=== PATIENT | female | born 1945 | race Caucasian/White ===

== ENCOUNTER → 2016-06-22 | Outpatient (CLI) | payer MEDICARE, OTHER ==
--- NOTE | 2016-06-22 08:26 | US ---
EXAMINATION TYPE: US abdomen complete DATE OF EXAM: 06/22/2016 8:11 AM COMPARISON: 12/27/2015 CLINICAL HISTORY: Chronic Hep B. EXAM MEASUREMENTS: Liver Length: 13.4cm Gallbladder Wall: 0.2cm CBD: 0.2cm Spleen: 8.5 Right Kidney: 10.3 x 4.4 x 4.7cm Left Kidney: 9.4 x 4.7 x 4.8cm ANATOMY: TECHNOLOGIST IMPRESSION: Pancreas: appears wnl Liver: somewhat heterogeneous limiting visualization, no masses seen Gallbladder: wnl Evidence for sonographic Hernandez's sign: No CBD: Within normal limits Spleen: no mass seen Right Kidney: No hydronephrosis or masses seen Left Kidney: No hydronephrosis or masses seen Upper IVC: Within normal limits Abd Aorta: Within normal limits The liver is heterogenous. The intrahepatic portion of the IVC and proximal abdominal aorta are withi n normal limits. There is no evidence of cholelithiasis. Common bile duct is unremarkable. The vis ualized portions of the pancreas are homogenous. The spleen is unremarkable. Kidneys are symmetric and free of hydronephrosis. No renal lesions are seen. IMPRESSION: Hepatic heterogeneity which may reflect chronic hepatocellular disease. Normal Values: Liver Length: < 16cm wnl, 17-18cm upper limits, >18cm enlarged Spleen Length = < 13cm Renal Length = 9 - 12cm GB Wall: < 0.3cm CBD: < 0.6cm or < 1.0cm post cholecystectomy
== END | disposition home or self-care (01) ==
LOC: RADUSWWP 07:36
PROVIDERS: ATTEND Internal Medicine Gastroenterology
DX: B18.1 Chronic viral hepatitis B without delta-agent (principal)
CPT/HCPCS: 76700

== ENCOUNTER → 2016-08-17 | Outpatient (CLI) | payer MEDICARE, OTHER ==
--- NOTE | 2016-08-18 10:29 | MM ---
Reason for exam: screening (asymptomatic). Last mammogram was performed 1 year ago. History: Patient is postmenopausal. Family history of breast cancer in maternal aunt at age 60 and breast cancer in paternal aunt at age 60. Benign excisional biopsy of the right breast, 2006. Took estrogen for 5 years beginning at age 32. Physical Findings: A clinical breast exam by your physician is recommended on an annual basis and results should be correlated with mammographic findings. MG 3D Screening Mammo W/Cad Bilateral CC and MLO view(s) were taken. Prior study comparison: August 16, 2015, bilateral MG screening mammo w CAD. August 13, 2014, bilateral MG screening mammo w CAD. July 17, 2013, bilateral digital screening mammo w/CAD. There are scattered fibroglandular densities. Finding: There are typically benign round calcifications in both breasts. Asymmetric breast tissue in the right breast upper quadrant is stable. There is a chronic nodularity bilaterally. There is no new dominant lesion. There is no discrete abnormality. ASSESSMENT: Benign, BI-RAD 2 RECOMMENDATION: Routine screening mammogram of both breasts in 1 year.
== END ==
LOC: RADMAMWWP 10:48
PROVIDERS: ATTEND Internal Medicine
DX: Z12.31 Encounter for screening mammogram for malignant neoplasm of breast (principal)
CPT/HCPCS: 77063; G0202

== ENCOUNTER → 2016-11-24 | Outpatient (CLI) | payer MEDICARE, OTHER ==
--- NOTE | 2016-11-24 16:56 | US ---
EXAMINATION TYPE: US abdomen complete DATE OF EXAM: 11/24/2016 COMPARISON: US on PACS CLINICAL HISTORY: K74.0 Liver Fibrosis,B18.1 CHR Viral Hepatitis. EXAM MEASUREMENTS: Liver Length: 13.6 cm Gallbladder Wall: 0.1 cm CBD: 0.3 cm Spleen: 8.4 cm Right Kidney: 10.4 x 5.3 x 4.4 cm Left Kidney: 9.9 x 4.6 x 4.5 cm Pancreas: wnl, bottom of tail obscured by bowel gas Liver: heterogeneous texture overall. No masses seen. Gallbladder: wnl Evidence for sonographic Hernandez's sign: no CBD: wnl Spleen: wnl Right Kidney: No hydronephrosis or masses seen, multiple small, shadowing echogenic foci noted withi n kidney Left Kidney: : No hydronephrosis or masses seen, multiple small, shadowing echogenic foci noted wit hin kidney Upper IVC: wnl Abd Aorta: wnl IMPRESSION: 1. Renal lithiasis without obstruction
== END | disposition home or self-care (01) ==
LOC: RADUSWWP 06:57
PROVIDERS: ATTEND Internal Medicine Gastroenterology
DX: N20.0 Calculus of kidney (principal); B18.1 Chronic viral hepatitis B without delta-agent
CPT/HCPCS: 76700

== ENCOUNTER → 2017-07-30 | Outpatient (CLI) | payer MEDICARE, OTHER ==
[2017-07-30 12:01] LABS: HCT 46.8 % (34.0-46.0); HGB 15.6 gm/dL (11.4-16.0); MCH 29.9 pg (25.0-35.0); MCHC 33.4 g/dL (31.0-37.0); MCV 89.6 fL (80.0-100.0); Mean Platelet Volume 7.1; Platelet Count 212 k/uL (150-450); RBC 5.22 m/uL (3.80-5.40); RDW 13.6 % (11.5-15.5); WBC 7.8 k/uL (3.8-10.6)
[2017-07-30 12:02] LABS: Appearance,Urine Clear (Clear); Bilirubin,Urine Negative (Negative); Blood,Urine Negative (Negative); Color,Urine Yellow; Glucose,Urine (UA) Negative (Negative); Ketones,Urine Negative (Negative); Leukocyte Esterase,Urine Negative (Negative); Nitrite,Urine Negative (Negative); PH, Urine 5.5 (5.0-8.0); Protein,Urine Negative (Negative); Specific Gravity,Urine 1.014 (1.001-1.035); Urobilinogen,Urine <2.0 mg/dL (<2.0)
[2017-07-30 12:14] LABS: Partial Thromboplastin Time 22.3 sec (22.0-30.0)
[2017-07-30 12:21] LABS: ALT 33 U/L (9-52); AST 29 U/L (14-36); Albumin 4.3 g/dL (3.5-5.0); Alkaline Phosphatase 79 U/L (38-126); Anion Gap 12 mmol/L; Blood Urea Nitrogen 20 mg/dL (7-17); Calcium 10.7 mg/dL (8.4-10.2); Carbon Dioxide 29 mmol/L (22-30); Chloride 103 mmol/L (98-107); Glucose 128 mg/dL (74-99); Potassium 3.4 mmol/L (3.5-5.1); Sodium 144 mmol/L (137-145); Total Bilirubin 0.8 mg/dL (0.2-1.3); Total Protein 7.2 g/dL (6.3-8.2)
== END | disposition home or self-care (01) ==
LOC: LABPAT 11:05
PROVIDERS: ATTEND Orthopaedic Surgery
DX: Z01.812 Encounter for preprocedural laboratory examination (principal); Z79.01 Long term (current) use of anticoagulants
CPT/HCPCS: 36415; 80053; 81003; 85027; 85610; 85730; 86850; 86900; 86901; 87070; 93005

== ENCOUNTER 2017-08-10 05:38 | Inpatient (IN) | payer MEDICARE, OTHER ==
[2017-08-04 09:38] VITALS: BMI 29.8
[~2017-08-10 05:38] MED LIST: ACETAMINOPHEN TAB 500 MG TAB PO ONE; MELOXICAM 7.5 MG TAB PO ONE; MORPHINE SULFATE 4 MG/ML SYRINGE IV PRN; ONDANSETRON 4 MG/2 ML VIAL IVP PRN; TRANEXAMIC ACID 1,000 MG in SODIUM CHLORIDE 0.9% 50 ML IVPB ONE; ceFAZolin IN SWFI 2 GM/20 ML SYRINGE IVP ONE
[2017-08-10] MEDS ORDERED: ROPIVACAINE 246.25 MG, EPINEPHrine 0.5 MG, KETOROLAC 30 MG, cloNIDine HCL/PF 80 MCG, WA... MISCELLANE ONE ×5 (06:01)
[2017-08-10] MEDS ORDERED: LIDOCAINE 1% 20 ML VIAL (10MG/ML) FOR IV START INTRADERMA ONE (06:40)
[2017-08-10] MEDS: LACTATED RINGERS 1,000 ML IV SCH ×2 (06:40→22:07)
[2017-08-10] MEDS ORDERED: SODIUM CHLORIDE 0.9% 100 ML BAG ONE (06:59)
[2017-08-10] MEDS ORDERED: LIDOCAINE 1% INJ 10MG/ML (20 ML MDV) ONE (06:59)
[2017-08-10] MEDS ORDERED: fentaNYL (PF) 50 MCG/ML 2 ML AMP ONE (06:59)
[2017-08-10] MEDS ORDERED: ePHEDrine SULFATE/0.9% NACL/PF 50 MG/5 ML SYRINGE IV ONE (06:59)
[2017-08-10] MEDS ORDERED: PROPOFOL 10 MG/ML 20 ML VIAL IV ONE (06:59)
[2017-08-10] MEDS ORDERED: MIDAZOLAM 2 MG/2 ML VIAL ONE (06:59)
[2017-08-10] MEDS ORDERED: TRANEXAMIC ACID 1,000 MG/10 ML VIAL ONE (06:59)
[2017-08-10] MEDS ORDERED: PHENYLEPHRINE-0.9% NACL SYG 1 MG/10 ML SYRINGE ONE (06:59)
[2017-08-10] MEDS ORDERED: NALOXONE 0.4 MG/ML 1 ML VIAL IV PRN (07:03)
[2017-08-10] MEDS ORDERED: hydrOXYzine PAMOATE 25 MG CAP PO PRN (07:03)
[2017-08-10] MEDS ORDERED: MAGNESIUM HYDROXIDE 2,400 MG/10 ML CUP PO PRN (07:03)
[2017-08-10] MEDS ORDERED: MORPHINE SULFATE 4 MG/ML SYRINGE IVP PRN ×3 (07:03)
[2017-08-10] MEDS ORDERED: HYDROcodone/APAP 5-325MG 1 EACH TAB PO PRN (07:03)
[2017-08-10] MEDS ORDERED: DIAZEPAM 5 MG TAB PO PRN ×2 (07:03)
[2017-08-10] MEDS ORDERED: ONDANSETRON 4 MG/2 ML VIAL IVP PRN (07:03)
[2017-08-10] MEDS ORDERED: LACTATED RINGERS 1,000 ML IV ONE (08:23)
--- NOTE | 2017-08-10 08:33 | P.OP ---
Date of Procedure: 08/10/17 Preoperative Diagnosis: Severe osteoarthritis right hip Postoperative Diagnosis: Severe osteoarthritis right hip Procedure(s) Performed: Right total hip arthroplasty with a direct anterior approach Implants: Tomlinson and nephew Polarstem size 1 standard Tomlinson & Nephew R3, 3 hole acetabular shell, 48 mm Otmlinson & Nephew reflection 6.5 mm cancellus screw, 20 mm 2 Tomlinson & Nephew R3, XLPE 20 acetabular liner Tomlinson & Nephew Oxinium femoral head 32 m, -3 All components were press-fit. The articulation is Oxinium on polyethylene. Anesthesia: spinal Surgeon: Everardo Bello Chalk Machine Operator #1: Nela Miller Estimated Blood Loss (ml): 400 (250 mL returned with Cell Saver) Pathology: other (Femoral head) Condition: stable Disposition: PACU Indications for Procedure: After failure of conservative treatment we discussed the surgical and nonsurgical treatment options at length. Patient wishes to proceed with a total hip arthroplasty with a direct anterior approach. Complications specific to this procedure were discussed at length, including but not limited to infection, leg length discrepancy, dislocation, and nerve injury. Patient is aware of all these complications and informed consent was obtained Operative Findings: The operative findings are consistent with severe osteoarthritis of the right hip Description of Procedure: Patient was seen and evaluated in the preoperative area, consent was reviewed, and the surgical site was marked with a skin marker. Patient was then brought to the operating room and given prophylactic antibiotics intravenously. 1 g of Tranexamic acid was also given. A spinal anesthetic was administered by the anesthesia department. The patient was then placed on the Trumann table with the bony prominences well-padded. The hip area was then prepped and draped in usual sterile fashion. A universal timeout was then performed, which confirmed the patient's name, surgical site, ALLERGIES, and procedure being performed. Next the incision site was located at 1 cm distal and 1 cm lateral to the anterior superior iliac spine. The skin and subcutaneous tissues were sharply incised. Incision was carefully dissected down to the fascia overlying the tensor fascia jewels muscle. This fascia was then incised in line with the incision. Next, using blunt finger dissection, the tensor fascia jewels muscle was dissected off its investing fascia. The muscle was then carefully retracted laterally with a cobra retractor over the lateral neck of the femur. Next, the circumflex vessels were identified and cauterized using the AquaMantis device. The anterior hip capsule was then exposed. The capsule was then opened and an inverted T fashion. Cobra retractors were then placed intracapsularly. The proximal femur was then visualized. The femoral neck was then osteotomized appropriate level above the lesser trochanter. Small amount of traction was placed with the Trumann table. A small wedge of bone was then removed from the remaining femoral head. Next, using a corkscrew femoral head was easily removed from the acetabulum. On gross visual inspection, the femoral head had complete loss of articular cartilage in multiple periarticular osteophytes. Attention was then turned to the acetabulum. the acetabulum was exposed and any remaining labrum was excised. Sequential reaming of the acetabulum was performed using fluoroscopic guidance. When the appropriate size was reached, a trial was then placed. The position and fit of the trial was checked with fluoroscopy. The trial was then removed. Then, using fluoroscopic guidance, the final implant was impacted at 20 of anteversion and 40 of abduction, and fully seated in the acetabulum. 2 screws were then placed in the acetabulum. Again fluoroscopy was used to check position of the screws. Next, the liner was then impacted, with a 20 elevated liner located in the anterior superior quadrant. Component locking was confirmed. Attention was then directed to the femur. With the aid of the Trumann table, the femur was externally rotated to approximately 130, extended, and abducted under the opposite leg. A side hook was then placed under the proximal femur, and the side hook elevator was used to elevate the proximal femur. Retractors were then placed. A capsular release was performed, as well as a release of the conjoined tendon, which afforded excellent visualization of the proximal femur. Next, a box osteotome was used to lateralize the proximal femur. A hand clerical verifier was then used to locate the femoral canal. Sequential broaching was then performed with appropriate size which afforded excellent fixation in the proximal femur. A trial was then placed with appropriate head and neck, and the hip was gently reduced with the aid of the Trumann table. Fluoroscopy was then used to check position of the components, as well as to ensure equal leg lengths. The hip was then gently dislocated and the trials were then removed. Final implants were then impacted and the hip was again reduced. Final fluoroscopic x-rays confirmed that the components were in anatomic position, as well as equal leg lengths. The hip was also taken through range of motion, and found to be stable. The hip was then copiously irrigated with antibiotic solution with pulsatile lavage. The hip was then irrigated with Irrisept solution. The soft tissues were then injected with a ropivacaine solution, which consisted of 246.25 mg of ropivacaine, 0.5 mg of epinephrine, 30 mg of Toradol, 80 g of clonidine, and 48.45 mL of sterile water, for a total of 100 mL of fluid injected. A second dose of 1 g of Tranexamic acid was also given. the fascia was then closed with 2-0 strata fix suture. The subcutaneous tissue was closed with 3-0 Vicryl. The subcuticular tissue was closed with 3-0 strata fix suture. The skin was then closed with Dermabond glue and a sterile silver dressing. The patient was then transferred to the recovery room in stable condition. The assistant golf coach GAURI Garibay was required due to the complexity of surgery, and the need for skilled certified surgical assistant for positioning, draping, exposure, retraction, and closure of the wound.
--- NOTE | 2017-08-10 08:43 | XR ---
EXAMINATION TYPE: XR Hip Limited RT DATE OF EXAM: 08/10/2017 COMPARISON: NONE HISTORY: Postop TECHNIQUE: One view submitted. FINDINGS: There is a prosthetic hip in near anatomic alignment. There is soft tissue edema and emphysema. IMPRESSION: 1. Postoperative change. Appears in near-anatomic alignment.
--- NOTE | 2017-08-10 08:44 | FL ---
EXAMINATION TYPE: FL guidance operating room DATE OF EXAM: 08/10/2017 HISTORY: Flouroscopy time 41 seconds of fluoroscopy provided. IMPRESSION: 1. Fluoroscopy time.
[2017-08-10] MEDS: HYDROcodone/APAP 5-325MG 1 EACH TAB PO PRN ×2 (12:53→22:10)
[2017-08-10] MEDS: ceFAZolin IN SWFI 2 GM/20 ML SYRINGE IVP SCH ×2 (17:37→23:54)
[2017-08-10] MEDS: ASPIRIN 325 MG TAB PO SCH (20:51)
[2017-08-10] MEDS ORDERED: SENNOSIDES-DOCUSATE SODIUM 1 EACH TAB PO SCH (21:00)
[2017-08-10] MEDS ORDERED: ATORVASTATIN 10 MG TAB PO SCH (21:00)
[2017-08-10] MEDS ORDERED: OXYBUTYNIN XL 5 MG TAB.ER.24 PO SCH (21:00)
[2017-08-10] MEDS: SODIUM CHLORIDE 0.9% 1,000 ML IV SCH ×2 (22:10→23:00)
--- NOTE | 2017-08-10 23:14 | CONS ---
CONSULTATION DATE OF CONSULTATION: 08/10/2017 REASON FOR CONSULTATION: Medical management requested by Dr. Bello. CONSULTATION: A very pleasant 72-year-old patient of Dr. West who has undergone a right total hip arthroplasty. Postprocedure, pain is controlled. No nausea, vomiting; sitting up, did tolerate her meal. The patient has had arthritis in other joints, especially her hands. Chronic stable medical conditions include GERD, hypertension, hyperlipidemia. Denies any cardiac history. No respiratory history. REVIEW OF SYSTEMS: CONSTITUTIONAL: None. HEENT: None. RESPIRATORY: None. CARDIOVASCULAR: None. GASTROINTESTINAL: Heartburn. GENITOURINARY: None. MUSCULOSKELETAL: Arthritic pain in other joints, including the hands. DERMATOLOGICAL: None. HEMATOLOGIC: None. LYMPHATIC: None. PSYCHIATRY: None. NEUROLOGICAL: None. PAST MEDICAL HISTORY: GERD, hypertension, hyperlipidemia, osteoarthritis in multiple joints, hepatitis B that was treated. PAST SURGICAL HISTORY: Back surgery, breast surgery, hysterectomy, joint replacement, rib on the right side, right breast surgery. SOCIAL HISTORY: Did smoke in the past. Alcohol occasionally. . Family history of lung cancer. HOME MEDICATIONS: 1. Vitamin E 400 units p.o. daily. 2. COQ10 400 mg p.o. daily. 3. Detrol 2 mg q.h.s. 4. Zocor 20 mg q.h.s. 5. Omeprazole 20 mg p.o. daily. 6. Mccamey-3 600 mg p.o. daily. 7. Aleve 440 mg p.o. daily. 8. Multivitamin 1 tablet p.o. daily. 9. Lisinopril 40 mg p.o. daily. 10.Hydrochlorothiazide 25 mg p.o. daily. 11.Vitamin D3 400 units p.o. daily. 12.Celebrex 200 mg p.o. daily. 13.Calcium 600 mg p.o. daily. 14.Atenolol 100 mg p.o. daily. ALLERGIES: None. EXAMINATION: Temperature 98, pulse 70, respirations 16, blood pressure 115/74, pulse ox 98% on room air. GENERAL APPEARANCE: Average build, lying in bed, comfortable. EYES: Pupils equal. Conjunctivae normal. HEENT: External appearance of nose, ears normal. Oral cavity normal. NECK: JVD not raised. Mass not palpable. RESPIRATORY: Effort normal. Lungs are clear. CARDIOVASCULAR: First and second sounds normal. No edema. ABDOMEN: Soft, nontender. Liver and spleen not palpable. LYMPHATIC: No lymph node palpable. PSYCHIATRY: Alert and oriented x3. Mood and affect normal. MUSCULOSKELETAL: Evidence of osteoarthritis, especially in the hands. Dressing on the right hip. INVESTIGATIONS: Blood work from 07/30/2017 shows hemoglobin 15.6. Potassium today was 3.7, BUN 20, creatinine 0.83. ASSESSMENT: 1. Right total hip arthroplasty. 2. Primary osteoarthritis in multiple joints, including the hands. 3. Hyperlipidemia. 4. Hypertension. 5. Gastroesophageal reflux disease. PLAN: Home medications will be resumed. Patient is on aspirin for DVT prophylaxis per Dr. Bello. Care was discussed with the patient. Questions were answered. Thank you, Dr. Bello. YAZANL / GLORIA: [id number] /
[2017-08-11] MEDS ORDERED: PANTOPRAZOLE 40 MG TABLET PO SCH (07:30)
[2017-08-11 07:55] LABS: Basophils % (A) 0 %; Eosinophils # (A) 0.1 k/uL (0-0.7); Eosinophils % (A) 2 %; HCT 33.5 % (34.0-46.0); Lymphocytes # (A) 1.3 k/uL (1.0-4.8); Lymphocytes % (A) 21 %; MCH 29.7 pg (25.0-35.0); MCHC 32.7 g/dL (31.0-37.0); MCV 90.7 fL (80.0-100.0); Mean Platelet Volume 7.3; Monocytes # (A) 0.5 k/uL (0-1.0); Monocytes % (A) 8 %; Neutrophils # (A) 4.1 k/uL (1.3-7.7); Neutrophils % (A) 67 %; Platelet Count 146 k/uL (150-450); RDW 13.7 % (11.5-15.5); WBC 6.1 k/uL (3.8-10.6)
--- NOTE | 2017-08-11 08:43 | P.DS ---
Providers Date of admission: 08/10/17 05:38 Expected date of discharge: 08/11/17 Attending physician: Everardo Bello Consults: 08/10/17 07:03 Consult Physician Routine Consulting Provider: Damion Kirkland Consult Reason/Comments: medical management Do you want consulting provider notified?: Yes Primary care physician: Stanislav West - Discharge Diagnosis(es) (1) Primary osteoarthritis of right hip Current Visit: Yes Status: Acute (2) S/P total hip arthroplasty Current Visit: Yes Status: Acute Hospital Course: This is a 72-year-old female with known history of degenerative arthritis of the right hip. The patient presents for evaluation. After discussion and consideration patient elects to proceed with total hip arthroplasty. The patient is seen preoperatively by Dr. Bello and cleared for surgery. Patient is admitted to [facility] on 08/10/2017 for total hip arthroplasty. The procedures performed without complication or sequelae. The patient is doing well postoperatively. Labs and vital signs are stable on day of discharge. On day of discharge patient's hip incision is healing well. There is minimal erythema. There is no drainage noted at this time. There is minimal soft tissue swelling to the hip and thigh. Patient has full foot and ankle motion without difficulty or pain. Neurovascular status to the right lower extremity is intact. Patient is discharged home in good condition. Please see med rec for accurate list of home medications. Plan - Discharge Summary Discharge Rx Participant: No New Discharge Prescriptions: New HYDROcodone/APAP 5-325MG [Vicco 5-325] 1 - 2 tab PO Q4-6H PRN #90 tab PRN Reason: Pain Aspirin 325 mg PO BID #60 tab Sennosides [Senokot] 1 tab PO BID #60 tablet No Action Celecoxib [CeleBREX] 200 mg PO QAM Vitamin E (Dl,Tocopheryl Acet) [Vitamin E] 400 unit PO QAM Naproxen Sodium [Aleve] 440 mg PO QAM Cholecalciferol [Vitamin D3] 400 unit PO DAILY@1200 Simvastatin [Zocor] 20 mg PO HS Lisinopril 40 mg PO QAM Hydrochlorothiazide [Hydrodiuril] 25 mg PO QAM Atenolol 100 mg PO QAM Ubidecarenone [Co Q-10] 400 mg PO QAM Tolterodine Tartrate [Detrol] 2 mg PO HS Omeprazole 20 mg PO QAM Multivit/Folic Acid/Vit K1 [One-A-Day Women's 50 Plus Tab] 1 tab PO QAM Calcium Carbonate [Calcium] 600 mg PO QAM Stephens-3 1,600 mg PO DAILY Discharge Medication List Atenolol 100 mg PO QAM 08/04/17 [History] Calcium Carbonate [Calcium] 600 mg PO QAM 08/04/17 [History] Celecoxib [CeleBREX] 200 mg PO QAM 08/04/17 [History] Cholecalciferol [Vitamin D3] 400 unit PO DAILY@1200 08/04/17 [History] Hydrochlorothiazide [Hydrodiuril] 25 mg PO QAM 08/04/17 [History] Lisinopril 40 mg PO QAM 08/04/17 [History] Multivit/Folic Acid/Vit K1 [One-A-Day Women's 50 Plus Tab] 1 tab PO QAM [History] Naproxen Sodium [Aleve] 440 mg PO QAM 08/04/17 [History] Omeprazole 20 mg PO QAM 08/04/17 [History] Simvastatin [Zocor] 20 mg PO HS 08/04/17 [History] Tolterodine Tartrate [Detrol] 2 mg PO HS 08/04/17 [History] Ubidecarenone [Co Q-10] 400 mg PO QAM 08/04/17 [History] Vitamin E (Dl,Tocopheryl Acet) [Vitamin E] 400 unit PO QAM 08/04/17 [History] Stephens-3 1,600 mg PO DAILY 08/10/17 [History] Aspirin 325 mg PO BID #60 tab 08/11/17 [Rx] HYDROcodone/APAP 5-325MG [Vicco 5-325] 1 - 2 tab PO Q4-6H PRN #90 tab 08/11/17 [ Rx] Sennosides [Senokot] 1 tab PO BID #60 tablet 08/11/17 [Rx] Follow up Appointment(s)/Referral(s): Everardo Bello DO [Doctor of Osteopathic Medicine] - 2 Weeks Activity/Diet/Wound Care/Special Instructions: Weightbearing as tolerated with walker Leave dressing intact. Dressing may be removed by home care nurse in 10 days, 08/21/2017 May shower with dressing on. Follow-up with [facility] in 2 weeks, please call with any questions or concerns [phone] Discharge Disposition: HOME WITH HOME HEALTH SERVICES
[2017-08-11] MEDS ORDERED: VITAMIN E (DL,TOCOPHERYL ACET) 400 UNIT CAP PO SCH (09:00)
[2017-08-11] MEDS ORDERED: MELOXICAM 7.5 MG TAB PO SCH (09:00)
[2017-08-11] MEDS ORDERED: LISINOPRIL 20 MG TAB PO SCH (09:00)
[2017-08-11] MEDS ORDERED: CALCIUM CARBONATE 500 MG CHEWABLE PO SCH (09:00)
[2017-08-11] MEDS ORDERED: ATENOLOL 50 MG TAB PO SCH (09:00)
[2017-08-11] MEDS: ASPIRIN 325 MG TAB PO SCH (09:35)
[2017-08-11] MEDS: HYDROcodone/APAP 5-325MG 1 EACH TAB PO PRN (09:35)
[2017-08-11 10:24] VITALS: BP 95/61; PULSE 81; RESP 16; TEMP 98.6
--- NOTE | 2017-08-11 20:06 | PN ---
PROGRESS NOTE DATE OF SERVICE: 08/11/2017 PRESENTING COMPLAINT: Right hip surgery. INTERVAL HISTORY: Patient is status post right hip surgery. Pain is being tolerated. No nausea, vomiting. Tolerating a diet. Did work with Therapy. No new issues. REVIEW OF SYSTEMS: Done for constitutional, cardiovascular, GI, pulmonary; relevant findings as above. CURRENT MEDICATIONS: Reviewed. PHYSICAL EXAMINATION: Temperature 98.6, pulse 81, respiration 16, blood pressure 95/61, pulse ox 93% on room air. GENERAL APPEARANCE: Comfortable. EYES: Pupils equal. Conjunctivae normal. HEENT: External appearance of nose and ears normal. Oral cavity normal. NECK: JVD not raised. Mass not palpable. RESPIRATORY: Effort normal. Lungs are clear. CARDIOVASCULAR: First and second sounds normal. No edema. ABDOMEN: Soft, nontender. Liver and spleen not palpable. PSYCHIATRY: Alert and oriented x3. Mood and affect normal. INVESTIGATIONS: Hemoglobin 11. ASSESSMENT: 1. Right total hip arthroplasty. 2. Primary osteoarthritis in multiple joints, including the hands. 3. Hyperlipidemia. 4. Essential hypertension. 5. Gastroesophageal reflux disease. 6. Acute postoperative blood-loss anemia as expected from surgery. PLAN: Patient is stable. Continue current medications. Should follow up with her family doctor. MMODL / IJN: [id number] /
== END 2017-08-11 15:14 | disposition home health service (06) | DRG 470 ==
LOC: 2ORMAIN 05:38 → 3SUR 08:35
PROVIDERS: ADMIT Orthopaedic Surgery; ATTEND Orthopaedic Surgery
PROC: 30233N0 Transfusion of Autologous Red Blood Cells into Peripheral Vein, Percutaneous Approach (ICD-10-PCS; 2017-08-10)
PROC: 0SR906A Replacement of Right Hip Joint with Oxidized Zirconium on Polyethylene Synthetic Substitute, Uncemented, Open Approach (ICD-10-PCS; principal; 2017-08-10 07:00)
DX: M16.11 Unilateral primary osteoarthritis, right hip (principal); D62 Acute posthemorrhagic anemia; B18.1 Chronic viral hepatitis B without delta-agent; E78.5 Hyperlipidemia, unspecified; I10 Essential (primary) hypertension; K21.9 Gastro-esophageal reflux disease without esophagitis; H40.20X0 Unspecified primary angle-closure glaucoma, stage unspecified; R73.02 Impaired glucose tolerance (oral); R26.9 Unspecified abnormalities of gait and mobility; M21.372 Foot drop, left foot; M21.371 Foot drop, right foot; Z96.642 Presence of left artificial hip joint; Z79.899 Other long term (current) drug therapy; Z90.710 Acquired absence of both cervix and uterus; Z87.891 Personal history of nicotine dependence; Z85.118 Personal history of other malignant neoplasm of bronchus and lung; Z82.49 Family history of ischemic heart disease and other diseases of the circulatory system
CPT/HCPCS: 73501; 84132; 85025; 86850; 86900; 86901; 88300

== ENCOUNTER → 2017-10-06 | Outpatient (CLI) | payer MEDICARE, OTHER ==
[2017-10-06 12:06] LABS: Basophils % (A) 1 %; Eosinophils # (A) 0.1 k/uL (0-0.7); Eosinophils % (A) 2 %; HCT 44.2 % (34.0-46.0); Lymphocytes # (A) 1.6 k/uL (1.0-4.8); Lymphocytes % (A) 27 %; MCH 28.3 pg (25.0-35.0); MCHC 31.9 g/dL (31.0-37.0); MCV 88.6 fL (80.0-100.0); Mean Platelet Volume 7.7; Monocytes # (A) 0.4 k/uL (0-1.0); Monocytes % (A) 7 %; Neutrophils # (A) 3.7 k/uL (1.3-7.7); Neutrophils % (A) 61 %; Platelet Count 203 k/uL (150-450); RBC 4.99 m/uL (3.80-5.40); RDW 14.5 % (11.5-15.5)
[2017-10-06 12:13] LABS: HGB 14.1 gm/dL (11.4-16.0)
[2017-10-06 12:14] LABS: ALT 26 U/L (9-52); AST 33 U/L (14-36); Albumin 4.1 g/dL (3.5-5.0); Alkaline Phosphatase 95 U/L (38-126); Anion Gap 13 mmol/L; Blood Urea Nitrogen 21 mg/dL (7-17); Calcium 10.1 mg/dL (8.4-10.2); Carbon Dioxide 27 mmol/L (22-30); Chloride 103 mmol/L (98-107); Glucose 104 mg/dL (74-99); Sodium 143 mmol/L (137-145); Total Bilirubin 0.6 mg/dL (0.2-1.3); Total Protein 6.9 g/dL (6.3-8.2)
== END | disposition home or self-care (01) ==
LOC: LABWHC1 11:18
PROVIDERS: ATTEND Internal Medicine Gastroenterology
DX: B18.1 Chronic viral hepatitis B without delta-agent (principal)
CPT/HCPCS: 36415; 80053; 82105; 85025

== ENCOUNTER → 2017-10-15 | Outpatient (CLI) | payer MEDICARE, OTHER ==
--- NOTE | 2017-10-18 08:14 | MM ---
Reason for exam: screening (asymptomatic). Last mammogram was performed 1 year and 2 months ago. History: Patient is postmenopausal. Family history of breast cancer in maternal aunt at age 60 and breast cancer in paternal aunt at age 60. Benign excisional biopsy of the right breast, 2006. Took estrogen for 5 years beginning at age 32. Physical Findings: A clinical breast exam by your physician is recommended on an annual basis and results should be correlated with mammographic findings. MG 3D Screening Mammo W/Cad Bilateral CC and MLO view(s) were taken. Prior study comparison: August 17, 2016, bilateral MG 3d screening mammo w/cad. August 16, 2015, bilateral MG screening mammo w CAD. The breast tissue is heterogeneously dense. This may lower the sensitivity of mammography. Finding: There are typically benign dystrophic, round calcifications in both breasts. There is a chronic nodularity bilaterally. There is no discrete abnormality. ASSESSMENT: Benign, BI-RAD 2 RECOMMENDATION: Routine screening mammogram of both breasts in 1 year.
== END | disposition home or self-care (01) ==
LOC: RADMAMWWP 10:16
PROVIDERS: ATTEND Internal Medicine
DX: Z12.31 Encounter for screening mammogram for malignant neoplasm of breast (principal)
CPT/HCPCS: 77063; 77067

== ENCOUNTER → 2017-10-27 | Outpatient (CLI) | payer MEDICARE, OTHER ==
--- NOTE | 2017-10-27 08:41 | US ---
EXAMINATION TYPE: US liver DATE OF EXAM: 10/27/2017 COMPARISON: NONE CLINICAL HISTORY: 72-year-old female B18.1 CHR VIRAL HEP B. TECHNIQUE: Multiple sonographic images of the right upper quadrant are obtained. FINDINGS: EXAM MEASUREMENTS: Liver Length: 12.7 cm Gallbladder Wall: 0.3 cm CBD: 0.4 cm Right Kidney: 10.1 x 4.1 x 5.2 cm Texture Artist notes: *Technical limitations due to large amount of overlying bowel content Pancreas: Tail obscured by overlying bowel gas Liver: There is relatively homogeneous echotexture without focal lesion seen. Gallbladder: Gallbladder wall measures at the upper limits of normal at 3 mm. There is no abnormal d istention, pericholecystic fluid, or shadowing calculi. Evidence for sonographic Hernandez's sign: no CBD: appears wnl Right Kidney: at least 3 possible stones noted, largest = 0.6cm. No hydronephrosis. IMPRESSION: 1. No sonographic evidence for hepatoma. 2. Borderline gallbladder wall thickening is nonspecific and may relate to the patient's underlying h epatitis. No evidence for cholelithiasis or other findings of acute cholecystitis. 3. Right-sided nephrolithiasis measuring up to 6 mm.
== END | disposition home or self-care (01) ==
LOC: RADUSWWP 06:48
PROVIDERS: ATTEND Internal Medicine Gastroenterology
DX: K82.8 Other specified diseases of gallbladder (principal); N20.0 Calculus of kidney; B18.1 Chronic viral hepatitis B without delta-agent
CPT/HCPCS: 76705

== ENCOUNTER 2018-01-19 10:35 | Day surgery (SDC) | payer MEDICARE, OTHER ==
[2018-01-17 14:28] VITALS: BMI 30.7
[~2018-01-19 10:35] MED LIST changes: -ACETAMINOPHEN TAB 500 MG TAB PO ONE; +LIDOCAINE 1% 20 ML VIAL (10MG/ML) FOR IV START INTRADERMA PRN; -MELOXICAM 7.5 MG TAB PO ONE; +MIDAZOLAM 2 MG/2 ML VIAL IV PRN; -MORPHINE SULFATE 4 MG/ML SYRINGE IV PRN; -ONDANSETRON 4 MG/2 ML VIAL IVP PRN; -TRANEXAMIC ACID 1,000 MG in SODIUM CHLORIDE 0.9% 50 ML IVPB ONE; -ceFAZolin IN SWFI 2 GM/20 ML SYRINGE IVP ONE
[2018-01-19 12:30] VITALS: RESP 16; TEMP 97.6
[2018-01-19] MEDS: LACTATED RINGERS 1,000 ML IV SCH ×2 (12:38→13:05)
[2018-01-19] MEDS ORDERED: PROPOFOL 10 MG/ML 20 ML VIAL IV ONE (13:05)
[2018-01-19] MEDS ORDERED: LIDOCAINE 1% INJ 10MG/ML (20 ML MDV) ONE (13:05)
--- NOTE | 2018-01-19 13:36 | P.PCN ---
Date of Procedure: 01/19/18 Procedure(s) Performed: BRIEF HISTORY: Patient is a 72-year-old pleasant white female, scheduled for an elective colonoscopy as a part of screening for colorectal neoplasia. PROCEDURE PERFORMED: Colonoscopy snare polypectomy. PREOPERATIVE DIAGNOSIS: Screening for colon cancer. IV sedation per Anesthesia. PROCEDURE: After informed consent was obtained, the patient, was brought into the endoscopy unit. IV sedation was administered by Anesthesia under continuous monitoring. Digital rectal examination was normal. Initially the Olympus CF- 160 flexible video pediatric colonoscope was then inserted in the rectum, gradually advanced into the sigmoid colon. There was an acute angulation noted. With gentle manipulation is able to advance the scope into the cecum without any difficulty. Careful examination was performed as the scope was gradually being withdrawn. Ileocecal valve and the appendiceal orifice were visualized and appeared normal. Prep was excellent. Mucosa of the cecum, appeared normal. In the ascending colon there was a 1.5 cm broad-based polyp removed by piecemeal snare polypectomy. Rest of the ascending colon, transverse colon, descending colon, sigmoid colon, and rectum appeared normal. Retroflexion was performed in the rectum and no lesions were seen. The patient tolerated the procedure well. IMPRESSION: Normal-appearing colon from rectum to cecum . RECOMMENDATIONS: Findings of this examination were discussed with the patient as well as a family. She was advised to follow with the biopsy results. If the biopsy shows a tubular adenoma, she can have a repeat colonoscopy in 3 years.
[2018-01-19 13:52] VITALS: BP 170/68; PULSE 59
== END 2018-01-19 14:23 | disposition home or self-care (01) ==
LOC: ORWHC2ENDO 10:35
PROVIDERS: ATTEND Internal Medicine Gastroenterology
DX: Z12.11 Encounter for screening for malignant neoplasm of colon (principal); Q43.8 Other specified congenital malformations of intestine; K63.5 Polyp of colon; I10 Essential (primary) hypertension; Z79.899 Other long term (current) drug therapy
CPT/HCPCS: 88305; 45385; J2001; J2704

== ENCOUNTER → 2018-03-02 | Outpatient (CLI) | payer MEDICARE, OTHER ==
[2018-03-02 14:09] LABS: Basophils % (A) 1 %; Eosinophils # (A) 0.2 k/uL (0-0.7); Eosinophils % (A) 3 %; HCT 45.1 % (34.0-46.0); HGB 14.8 gm/dL (11.4-16.0); Lymphocytes % (A) 34 %; MCH 29.6 pg (25.0-35.0); MCHC 32.8 g/dL (31.0-37.0); MCV 90.2 fL (80.0-100.0); Mean Platelet Volume 6.8; Monocytes # (A) 0.5 k/uL (0-1.0); Monocytes % (A) 8 %; Neutrophils % (A) 52 %; Platelet Count 181 k/uL (150-450); RDW 14.9 % (11.5-15.5); WBC 5.7 k/uL (3.8-10.6)
[2018-03-02 14:30] LABS: ALT 30 U/L (9-52); AST 35 U/L (14-36); Albumin 4.2 g/dL (3.5-5.0); Alkaline Phosphatase 71 U/L (38-126); Anion Gap 11 mmol/L; Blood Urea Nitrogen 20 mg/dL (7-17); Calcium 10.1 mg/dL (8.4-10.2); Carbon Dioxide 26 mmol/L (22-30); Chloride 103 mmol/L (98-107); Glucose 89 mg/dL (74-99); Potassium 3.9 mmol/L (3.5-5.1); Sodium 140 mmol/L (137-145); Total Bilirubin 0.5 mg/dL (0.2-1.3); Total Protein 7.2 g/dL (6.3-8.2)
== END | disposition home or self-care (01) ==
LOC: LABWHC1 13:44
PROVIDERS: ATTEND Internal Medicine Gastroenterology
DX: B18.2 Chronic viral hepatitis C (principal)
CPT/HCPCS: 36415; 80053; 82105; 85025

== ENCOUNTER → 2018-12-16 | Outpatient (CLI) | payer MEDICARE, OTHER ==
--- NOTE | 2018-12-20 08:07 | MM ---
Reason for exam: screening (asymptomatic). Last mammogram was performed 1 year and 2 months ago. History: Patient is postmenopausal. Family history of breast cancer in maternal aunt at age 60 and breast cancer in paternal aunt at age 60. Benign excisional biopsy of the right breast, 2006. Took estrogen for 5 years beginning at age 32. Physical Findings: A clinical breast exam by your physician is recommended on an annual basis and results should be correlated with mammographic findings. MG 3D Screening Mammo W/Cad Bilateral CC and MLO view(s) were taken. Prior study comparison: October 15, 2017, bilateral MG 3d screening mammo w/cad. August 17, 2016, bilateral MG 3d screening mammo w/cad. There are scattered fibroglandular densities. There is chronic nodularity bilaterally. New grouped calcifications upper outer quadrant right breast. ASSESSMENT: Incomplete: need additional imaging evaluation, BI-RAD 0 RECOMMENDATION: Special view mammogram of the right breast. [facility] will attempt to contact patient to return for supplemental views.
== END | disposition home or self-care (01) ==
LOC: RADMAMWWP 14:34
PROVIDERS: ATTEND Internal Medicine
DX: Z12.31 Encounter for screening mammogram for malignant neoplasm of breast (principal)
CPT/HCPCS: 77063; 77067

== ENCOUNTER → 2018-12-23 | Outpatient (CLI) | payer MEDICARE, OTHER ==
--- NOTE | 2018-12-23 14:51 | MM ---
Reason for exam: additional evaluation requested from abnormal screening. Last mammogram was performed less than 1 month ago. History: Patient is postmenopausal. Family history of breast cancer in maternal aunt at age 60 and breast cancer in paternal aunt at age 60. Benign excisional biopsy of the right breast, 2006. Took estrogen for 5 years beginning at age 32. Physical Findings: Nurse did not find any significant physical abnormalities on exam. MG 3D Work Up W/Cad RT CC with magnification, LM with magnification, and LM view(s) were taken of the right breast. Prior study comparison: December 16, 2018, bilateral MG 3d screening mammo w/cad. October 15, 2017, bilateral MG 3d screening mammo w/cad. The breast tissue is heterogeneously dense. This may lower the sensitivity of mammography. Finding: There are coarse heterogeneous, grouped/clustered calcifications in the 11 o'clock upper outer quadrant, middle position of the right breast. New finding since December 16, 2018 and October 15, 2017. These results were verbally communicated with the patient and result sheet given to the patient on 12/23/18. ASSESSMENT: Suspicious, BI-RAD 4 RECOMMENDATION: Stereotactic core biopsy of the right breast. Called with mammographic findings and has scheduled an appointment for the patient for 01/12/19 at 4:[address] Dodd. Biopsy scheduled for 01/13/19 at 8:00. PRELIMINARY REPORT CALLED AND FAXED TO DR. DODD ON 12/23/18.
== END | disposition home or self-care (01) ==
LOC: RADMAMWWP 13:25
PROVIDERS: ATTEND Internal Medicine
DX: R92.8 Other abnormal and inconclusive findings on diagnostic imaging of breast (principal)
CPT/HCPCS: 77065; G0279; 77061

== ENCOUNTER → 2019-01-12 | Outpatient (CLI) | payer MEDICARE, OTHER ==
[2019-01-12 16:18] VITALS: BP 165/94; PULSE 68; RESP 18; TEMP 98; BMI 28.3
--- NOTE | 2019-01-12 17:10 | P.GSHP ---
History of Present Illness H&P Date: 01/12/19 Chief Complaint: Abnormal right breast mammogram Georgina is a 73-year-old white female who underwent routine screening mammogram was noted to have an area of concern in the right breast in the upper outer quadrant. This was performed and 7519. No lesions of concern were identified in the left breast. She subsequently had additional views of the right breast and [address]85[address]. This revealed coarse heterogeneous grouped calcifications in the 11:00 upper outer quadrant of the right breast. Stereotactic core biopsy was recommended. The patient does not feel anything of concern in her breast. She has no history of any trauma or infection in the breast. Family History: 1. 2 maternal aunts: Breast cancer 2. mother: lung cancer Hormonal history: Menarche:17 breast fed: yes, first born at 22 Menopause: hysterectomy early 's done for infection related to an IUD, left 1 ovary BCP: 5 years hormones: 10 years, typically right after her hysterectomy and stopped in her early to mid 40s At past surgical history: 1. Hysterectomy and one posteriorly 2. TB into bone and rib removed 3. back fused 4. two total hip replacements 5. right thumb 6. right breast biopsy many years ago Medical history: HTN hepatitis B arthritis Social history: Smoke: Negative Alcohol: Wine every evening Drugs: Negative - Constitutional Constitutional: Denies chills, Denies fever - EENT Eyes: denies blurred vision, denies pain Ears: deny: decreased hearing, tinnitus Ears, nose, mouth and throat: Denies headache, Denies sore throat - Breasts Breasts: bilateral: as per HPI - Cardiovascular Cardiovascular: Reports high blood pressure - Respiratory Respiratory: Denies cough, Denies 7 - Gastrointestinal Comment: hepatitis B Gastrointestinal: Denies abdominal pain, Denies diarrhea, Denies nausea, Denies vomiting - Genitourinary (Female) Genitourinary: Reports kidney stones, Denies dysuria, Denies hematuria - Menstruation Menstruation: Reports post hysterectomy - Musculoskeletal Comment: ARTHritis - Integumentary Integumentary: Denies pruritus, Denies rash - Neurological Neurological: Denies numbness, Denies weakness - Psychiatric Psychiatric: Denies anxiety, Denies depression - Endocrine Endocrine: Denies fatigue, Denies weight change - Hematologic/Lymphatic Comment: none - Allergic/Immunologic Allergic/Immunologic: Reports as per HPI Past Medical History Past Medical History: GERD/Reflux, Hypertension, Liver Disease, Osteoarthritis (OA) Additional Past Medical History / Comment(s): HEPATITIS B., 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 History of Any Multi-Drug Resistant Organisms: None Reported Past Surgical History: Back Surgery, Breast Surgery, Hysterectomy, Joint Replacement Additional Past Surgical History / Comment(s): states rib on right side removed due to tuberculosis., right breast bx., lower back fusion., parag total hips Past Anesthesia/Blood Transfusion Reactions: No Reported Reaction, Family History of Problems w/ Anesthesia Additional Past Anesthesia/Blood Transfusion Reaction / Comment(s): SISTER & DAUGHTER HAVE PONV Past Psychological History: No Psychological Hx Reported Smoking Status: Former smoker Past Alcohol Use History: None Reported, Occasional Additional Past Alcohol Use History / Comment(s): QUIT SMOKING 2010. SMOKED 1 PPD. Past Drug Use History: None Reported - Past Family History Mother Family Medical History: Cancer Additional Family Medical History / Comment(s): lung cancer Medications and Allergies Home Medications Medication Instructions Recorded Confirmed Type Atenolol 100 mg PO QAM 08/04/17 01/12/19 History Celecoxib [CeleBREX] 200 mg PO QAM 08/04/17 01/12/19 History Hydrochlorothiazide [Hydrodiuril] 25 mg PO QAM 08/04/17 01/12/19 History Lisinopril 40 mg PO QAM 08/04/17 01/12/19 History Multivit/Folic Acid/Vit K1 1 tab PO QAM 08/04/17 01/12/19 History [One-A-Day Women's 50 Plus Tab] Naproxen Sodium [Aleve] 440 mg PO QAM 08/04/17 01/12/19 History Omeprazole 20 mg PO QAM 08/04/17 01/12/19 History Simvastatin [Zocor] 20 mg PO HS 08/04/17 01/12/19 History Ubidecarenone [Co Q-10] 400 mg PO QAM 08/04/17 01/12/19 History [place]-3 Fatty Acids [[place]-3] 1,600 mg PO DAILY 10/26/17 01/12/19 History Tolterodine Tartrate [Detrol LA] 4 mg PO HS 10/26/17 01/12/19 History Cholecalciferol [Vitamin D3] 5,000 unit PO DAILY 01/17/18 01/12/19 History Allergies Allergy/AdvReac Type Severity Reaction Status Date / Time No Known Allergies Allergy Verified 01/12/19 16:18 Surgical - Exam Vital Signs Temp Pulse Resp BP Pulse Ox 98.0 F 68 18 165/94 95 01/12/19 16:14 01/12/19 16:14 01/12/19 16:14 01/12/19 16:14 01/12/19 16:14 BMI 28.3 - General well developed, well nourished, no distress - Eyes normal ocular movement - ENT no hearing loss, no congestion - Neck no masses, trachea midline - Respiratory normal expansion, normal respiratory effort, clear to auscultation - Cardiovascular Rhythm: regular Heart Sounds: normal: S1, S2 - Abdomen Abdomen: soft, non tender, no guarding, no rigid, no rebound - Integumentary normal turgor - Neurologic no disoriented, no combative - Musculoskeletal normal gait - Psychiatric oriented to time, oriented to person, oriented to place, speech is normal, memory intact Breast exam: Right breast: Multi-positional exam no dominant masses or nodules of concern Right axilla: No adenopathy of concern Left breast: Multi-positional exam fibrocystic changes, increased nodularity 1 o'clock position, no discrete mass identified Left axilla: No adenopathy of concern Results Mammogram results reviewed Assessment and Plan Assessment: Impression: 1. Mammographic abnormality right breast 2. Fibrocystic breast changes 3. Increased nodularity 1 o'clock position left breast 4. Family history of breast cancer 5. Arthritis 6. Hypertension 7. Hepatitis B Risks and benefits of stereotactic biopsy up and discussed with the patient and her . She understands and this is scheduled for the near future. Plan: 1. Stereotactic core biopsy right breast 2. Left breast FNA 3. Medical management of medical conditions CC:DR. West
== END | disposition home or self-care (01) ==
LOC: WWCWWP 15:48
PROVIDERS: ATTEND Surgery
DX: Z53.9 Procedure and treatment not carried out, unspecified reason (principal)

== ENCOUNTER → 2019-01-13 | Day surgery (SDC) | payer MEDICARE, OTHER ==
[2019-01-13 07:27] VITALS: RESP 16; BMI 28.9
[2019-01-13 09:41] VITALS: BP 162/79; PULSE 78; TEMP 97.8
--- NOTE | 2019-01-13 09:58 | MM ---
EXAMINATION TYPE: MG stereo VAD BX RT DATE OF EXAM: 01/13/2019 COMPARISON: Diagnostic exam dated 12/23/2018 CLINICAL HISTORY: Indeterminate right breast calcifications for which stereotactic guided biopsy was recommended TECHNIQUE: Stereotactic guided core biopsy of right breast. FINDINGS: The procedure of stereotactic guided core biopsy was explained to the patient. Benefits, alternatives, and risks were discussed. An informed consent was then obtained. Preprocedural timeout was performed The shortness pathway for biopsy was chosen to localize the 1.0 cm group of calcifications in the upper outer quadrant of the right breast at middle depth. Shortness pathway was CC from above approach. I performed the localization, then surgeon, Dr. Som [place] performed the remainder of the procedure. A vacuum assisted biopsy gun was used to obtain multiple core samples. The patient tolerated the procedure well without any immediate complication. The patient was kept in the radiology department for short stay after the procedure and then discharged home in stable condition. Targeted calcifications are identified in specimen mammogram. Post biopsy mammogram shows the clip to appear in satisfactory position relative to the targeted area of concern on the preprocedure images. IMPRESSION: SUCCESSFUL, UNCOMPLICATED STEREOTACTIC GUIDED CORE BIOPSY OF AREA OF CONCERN IN THE RIGHT BREAST, FULL PATHOLOGY RESULTS TO FOLLOW. Pathology Results: Benign RIGHT BREAST, STEREOTACTIC CORE BIOPSY: Fibroadenoma/fibroadenomatoid hyperplasia with calcifications and background fibrocystic changes. Recommendation Follow up mammogram of the right breast in 6 months. MTDD
== END ==
LOC: RADMAMWWP 06:48
PROVIDERS: ATTEND Surgery
DX: D24.1 Benign neoplasm of right breast (principal); N62 Hypertrophy of breast; R92.0 Mammographic microcalcification found on diagnostic imaging of breast; N60.11 Diffuse cystic mastopathy of right breast
CPT/HCPCS: 88305; 19081; A4648; J2001

== ENCOUNTER → 2019-01-13 | Outpatient (CLI) | payer MEDICARE, OTHER ==
[2019-01-13 08:39] VITALS: BP 164/91; PULSE 67; RESP 18; TEMP 98; BMI 28.3
--- NOTE | 2019-01-13 09:14 | P.PCN ---
Date of Procedure: 01/13/19 Preoperative Diagnosis: Increased palpable nodularity left breast 12:30 position Postoperative Diagnosis: Same Procedure(s) Performed: Fine-needle aspiration of the area Surgeon: Maryana Dodd Pathology: other Condition: stable Disposition: same day Indications for Procedure: Increased nodularity palpable in the left breast 12:30 to 1 o'clock position Operative Findings: Fibrofatty tissue Description of Procedure: The area of concern in the left breast was prepped using alcohol. A 22-gauge needle on a 10 mL syringe was inserted into the area of nodularity and multiple passes were obtained. This was done under vacuum aspiration. The specimen was then retrieved and prepared and sent for cytology. A sterile dressing was applied. The patient tolerated the procedure in stable condition.
--- NOTE | 2019-01-13 09:19 | P.PCN ---
Date of Procedure: 01/13/19 Preoperative Diagnosis: Microcalcifications 11:00 upper outer quadrant of the right breast Postoperative Diagnosis: same Procedure(s) Performed: Stereotactic right breast biopsy Anesthesia: local Surgeon: Maryana Dodd Pathology: other (Breast tissue) Condition: stable Disposition: same day Indications for Procedure: Microcalcifications of concern right breast 11:00 upper quadrant position maneuvers findings sensed October 2017 Operative Findings: Fibrofatty and some dense breast tissue, microcalcifications present and radiograph of the specimen Description of Procedure: The patient was taken to the stereotactic core biopsy room. Risk and benefits of the procedure were discussed with the patient and her and she wished to proceed with the procedure. She was positioned on the stereotactic table such that a CC from above approach would be utilized. A research nurse practitioner film was obtained. The lesion of concern was identified. The lesion was targeted. The skin was prepped using Betadine. 20 mL of 1% lidocaine was used to anesthetize the area. 10 cc with epinephrine and 10 cc without epinephrine. A 9-gauge vacuum-assisted core biopsy needle was driven to the correct coordinates. Pre- fire films were obtained. The needle was in the correct location. The needle was fired. Post fire films were obtained. The needle was in the correct location. Eight core biopsies were obtained. Radiograph of the specimen revealed the area of concern had been sampled. The area was marked with a secure marked top hat brim and crown laminating operator. The specimen was sent to pathology. The patient will follow with Dr. Kearns in 1 week. She tolerated the procedure with no complications.
== END | disposition home or self-care (01) ==
LOC: WWCWWP 08:14
PROVIDERS: ATTEND Surgery
DX: N63.21 Unspecified lump in the left breast, upper outer quadrant (principal); R92.0 Mammographic microcalcification found on diagnostic imaging of breast
CPT/HCPCS: 88173

== ENCOUNTER → 2019-01-18 | Outpatient (CLI) | payer MEDICARE, OTHER ==
[2019-01-18 14:47] VITALS: BP 149/71; PULSE 76; RESP 18; TEMP 97.7; BMI 28.3
--- NOTE | 2019-01-18 15:20 | P.PN ---
Subjective Progress Note Date: 01/18/19 Georgina is a 73-year-old white female who underwent routine screening mammogram was noted to have an area of concern in the right breast in the upper outer quadrant. This was performed and 7519. No lesions of concern were identified in the left breast. She subsequently had additional views of the right breast and [id number]. This revealed coarse heterogeneous grouped calcifications in the 11:00 upper outer quadrant of the right breast. Stereotactic core biopsy was recommended. This was performed on S219. Pathology was benign and revealed that the adenoma/fibroadenomatoid hyperplasia with calcifications and BX them fibrocystic changes. On the same day and FNA of the left breast was performed which was minimally cellular specimen consisting of scanty fragments of adipose tissue in background blood nondiagnostic. Is doing well since the procedure and has no complaints related to the procedure. She does have bilateral mild ecchymosis at the sites of biopsy. Family History: 1. 2 maternal aunts: Breast cancer 2. mother: lung cancer Hormonal history: Menarche:17 breast fed: yes, first born at 22 Menopause: hysterectomy early 30's done for infection related to an IUD, left 1 ovary BCP: 5 years hormones: 10 years, typically right after her hysterectomy and stopped in her early to mid 40s At past surgical history: 1. Hysterectomy and one posteriorly 2. TB into bone and rib removed 3. back fused 4. two total hip replacements 5. right thumb 6. right breast biopsy many years ago Medical history: HTN hepatitis B arthritis Social history: Smoke: Negative Alcohol: Wine every evening Drugs: Negative - Constitutional Constitutional: Denies chills, Denies fever - EENT Eyes: denies blurred vision, denies pain Ears: deny: decreased hearing, tinnitus Ears, nose, mouth and throat: Denies headache, Denies sore throat - Breasts Breasts: bilateral: as per HPI - Cardiovascular Cardiovascular: Reports high blood pressure - Respiratory Respiratory: Denies cough, Denies 7 - Gastrointestinal Comment: hepatitis B Gastrointestinal: Denies abdominal pain, Denies diarrhea, Denies nausea, Denies vomiting - Genitourinary (Female) Genitourinary: Reports kidney stones, Denies dysuria, Denies hematuria - Menstruation Menstruation: Reports post hysterectomy - Musculoskeletal Comment: ARTHritis - Integumentary Integumentary: Denies pruritus, Denies rash - Neurological Neurological: Denies numbness, Denies weakness - Psychiatric Psychiatric: Denies anxiety, Denies depression - Endocrine Endocrine: Denies fatigue, Denies weight change - Hematologic/Lymphatic Comment: none - Allergic/Immunologic Allergic/Immunologic: Reports as per HPI Past Medical History Past Medical History: GERD/Reflux, Hypertension, Liver Disease, Osteoarthritis (OA) Additional Past Medical History / Comment(s): HEPATITIS B., 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 History of Any Multi-Drug Resistant Organisms: None Reported Past Surgical History: Back Surgery, Breast Surgery, Hysterectomy, Joint Replacement Additional Past Surgical History / Comment(s): states rib on right side removed due to tuberculosis., right breast bx., lower back fusion., parag total hips Past Anesthesia/Blood Transfusion Reactions: No Reported Reaction, Family History of Problems w/ Anesthesia Additional Past Anesthesia/Blood Transfusion Reaction / Comment(s): SISTER & DAUGHTER HAVE PONV Past Psychological History: No Psychological Hx Reported Smoking Status: Former smoker Past Alcohol Use History: None Reported, Occasional Additional Past Alcohol Use History / Comment(s): QUIT SMOKING 2010. SMOKED 1 PPD. Past Drug Use History: None Reported Objective - Vital Signs Vital signs: Vital Signs Temp 97.7 F 01/18/19 14:45 Pulse 76 01/18/19 14:45 Resp 18 01/18/19 14:45 BP 149/71 01/18/19 14:45 Pulse Ox 95 01/18/19 14:45 Intake & Output 01/17/19 01/18/19 01/18/19 18:59 06:59 18:59 Weight 70.307 kg - Exam BMI 28.3 - Constitutional General appearance: Present: average body habitus - EENT Eyes: Present: EOMI ENT: Present: hearing grossly normal - Neck Neck: Present: normal ROM - Respiratory Respiratory: bilateral: CTA - Cardiovascular Rhythm: regular Heart sounds: normal: S1, S2 - Integumentary Integumentary: Present: normal turgor - Musculoskeletal Musculoskeletal: Present: gait normal - Psychiatric Psychiatric: Present: A&O x's 3, appropriate affect, intact judgment & insight - Additional findings Additional findings: Lateral breast biopsy sites mild ecchymosis, no evidence of infection no evidence of hematoma Assessment and Plan Assessment: Impression: 1. Right breast fibroadenomatoid change on stereo biopsy 2. Left breast no malignant cells found on FNA 3. Bilateral fibrocystic changes 4. Bilateral mild ecchymosis 5. History of breast cancer 6. Family history mother with lung cancer 7. History of hepatitis B 8. Hypertension 9. Arthritis Plan: 1. Bilateral mammogram in 6 months with a physician exam at that time 2. Medical management of medical conditions CC: Dr. Stanislav Wets
== END | disposition home or self-care (01) ==
LOC: WWCWWP 14:39
PROVIDERS: ATTEND Surgery
DX: Z53.9 Procedure and treatment not carried out, unspecified reason (principal)

== ENCOUNTER → 2019-03-13 | Outpatient (CLI) | payer MEDICARE, OTHER ==
[2019-03-13 11:57] LABS: Basophils % (A) 1 %; Eosinophils # (A) 0.2 k/uL (0-0.7); Eosinophils % (A) 3 %; HCT 43.3 % (34.0-46.0); HGB 15.1 gm/dL (11.4-16.0); Lymphocytes # (A) 1.5 k/uL (1.0-4.8); Lymphocytes % (A) 30 %; MCH 31.9 pg (25.0-35.0); MCHC 34.9 g/dL (31.0-37.0); MCV 91.4 fL (80.0-100.0); Mean Platelet Volume 6.2; Monocytes # (A) 0.3 k/uL (0-1.0); Monocytes % (A) 6 %; Neutrophils % (A) 59 %; Platelet Count 192 k/uL (150-450); RBC 4.73 m/uL (3.80-5.40); RDW 13.5 % (11.5-15.5); WBC 5.1 k/uL (3.8-10.6)
[2019-03-13 15:48] LABS: African American GFR (CKD) 100.3 (60.0-200.0); Albumin/Globulin Ratio 2.11 (1.60-3.17); Anion Gap 11.6 mmol/L (4.00-12.00); BUN/Creat Ratio 28.57 Ratio (12.00-20.00); Calcium 9.4 mg/dL (8.7-10.3); Carbon Dioxide 27.4 mmol/L (21.6-31.8); Globulin 1.9 g/dL (1.6-3.3); Potassium 3.9 mmol/L (3.5-5.5); Total Bilirubin 0.6 mg/dL (0.3-1.2); Total Protein 5.9 g/dL (6.2-8.2)
== END | disposition home or self-care (01) ==
LOC: LABWHC1 10:44
PROVIDERS: ATTEND Internal Medicine Gastroenterology
DX: B18.1 Chronic viral hepatitis B without delta-agent (principal)
CPT/HCPCS: 36415; 80053; 82105; 85025

== ENCOUNTER → 2019-06-27 | Outpatient (CLI) | payer MEDICARE, OTHER ==
--- NOTE | 2019-06-27 10:47 | MM ---
Reason for exam: follow-up at short interval from prior study. Last mammogram was performed 6 months ago. History: Patient is postmenopausal. Family history of breast cancer in maternal aunt at age 60 and breast cancer in paternal aunt at age 60. Benign MG stereo VAD BX RT of the right breast, January 13, 2019. Benign excisional biopsy of the right breast, 2006. Took estrogen for 5 years beginning at age 32. Physical Findings: Nurse did not find any significant physical abnormalities on exam. MG 3D Diag Mammo W/Cad PADMINI Bilateral CC and MLO view(s) were taken. Prior study comparison: December 23, 2018, right breast MG 3d work up w/cad RT. December 16, 2018, bilateral MG 3d screening mammo w/cad. There are scattered fibroglandular densities. There are benign appearing round oval circumscribed bilateral stable masses. Benign appearing bilateral calcifications. No suspicious abnormality. Right biopsy marker noted. No significant new findings when compared with previous films. These results were verbally communicated with the patient and result sheet given to the patient on 06/27/19. ASSESSMENT: Benign, BI-RAD 2 RECOMMENDATION: Routine screening mammogram of both breasts in 1 year.
== END | disposition home or self-care (01) ==
LOC: RADMAMWWP 09:19
PROVIDERS: ATTEND Surgery
DX: R92.8 Other abnormal and inconclusive findings on diagnostic imaging of breast (principal)
CPT/HCPCS: 77066; G0279; 77062

== ENCOUNTER → 2019-06-30 | Outpatient (CLI) | payer MEDICARE, OTHER ==
[2019-06-30 11:51] VITALS: BP 121/68; PULSE 83; RESP 18; TEMP 97.8
--- NOTE | 2019-06-30 12:10 | P.PN ---
Subjective Progress Note Date: 06/30/19 Principal diagnosis: Fibroadenoma/fibroadenomatoid hyperplasia Georgina is a 73-year-old white female who underwent routine screening mammogram was noted to have an area of concern in the right breast in the upper outer quadrant. This was performed and 7519. No lesions of concern were identified in the left breast. She subsequently had additional views of the right breast and 67542. This revealed coarse heterogeneous grouped calcifications in the 11:00 upper outer quadrant of the right breast. Stereotactic core biopsy was recommended. The patient does not feel anything of concern in her breast. She has no history of any trauma or infection in the breast. Stereotactic core biopsy of the right breast was performed on to. This revealed fibroadenoma/fibroadenomatoid hyperplasia with calcifications and background fibrocystic changes. The patient is not complaining of any nipple discharge or skin changes. She is not complaining of any masses lumps or nodules in her breasts. She has not had any recent infection or trauma to her breast. No complaints of any pain in her breast. She had a bilateral mammogram performed on 06/27/2019, this was BIRADS 2 with no lesions of concern noted in either breast. Family History: 1. 2 maternal aunts: Breast cancer 2. mother: lung cancer Hormonal history: Menarche:17 breast fed: yes, first born at 22 Menopause: hysterectomy early 30's done for infection related to an IUD, left 1 ovary BCP: 5 years hormones: 10 years, typically right after her hysterectomy and stopped in her early to mid 40s At past surgical history: 1. Hysterectomy and one posteriorly 2. TB into bone and rib removed 3. back fused 4. two total hip replacements 5. right thumb 6. right breast biopsy many years ago Medical history: HTN hepatitis B arthritis Social history: Smoke: Negative Alcohol: Wine every evening Drugs: Negative - Constitutional Constitutional: Denies chills, Denies fever - EENT Eyes: denies blurred vision, denies pain Ears: deny: decreased hearing, tinnitus Ears, nose, mouth and throat: Denies headache, Denies sore throat - Breasts Breasts: bilateral: as per HPI - Cardiovascular Cardiovascular: Reports high blood pressure - Respiratory Respiratory: Denies cough - Gastrointestinal Comment: hepatitis B Gastrointestinal: Denies abdominal pain, Denies diarrhea, Denies nausea, Denies vomiting - Genitourinary (Female) Genitourinary: Reports kidney stones, Denies dysuria, Denies hematuria - Menstruation Menstruation: Reports post hysterectomy - Musculoskeletal Comment: ARTHritis - Integumentary Integumentary: Denies pruritus, Denies rash - Neurological Neurological: Denies numbness, Denies weakness - Psychiatric Psychiatric: Denies anxiety, Denies depression - Endocrine Endocrine: Denies fatigue, Denies weight change - Hematologic/Lymphatic Comment: none - Allergic/Immunologic Allergic/Immunologic: Reports as per HPI Past Medical History Past Medical History: GERD/Reflux, Hypertension, Liver Disease, Osteoarthritis (OA) Additional Past Medical History / Comment(s): HEPATITIS B., 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 History of Any Multi-Drug Resistant Organisms: None Reported Past Surgical History: Back Surgery, Breast Surgery, Hysterectomy, Joint Replacement Additional Past Surgical History / Comment(s): states rib on right side removed due to tuberculosis., right breast bx., lower back fusion., parag total hips Past Anesthesia/Blood Transfusion Reactions: No Reported Reaction, Family History of Problems w/ Anesthesia Additional Past Anesthesia/Blood Transfusion Reaction / Comment(s): SISTER & DAUGHTER HAVE PONV Past Psychological History: No Psychological Hx Reported Smoking Status: Former smoker Past Alcohol Use History: None Reported, Occasional Additional Past Alcohol Use History / Comment(s): QUIT SMOKING 2010. SMOKED 1 PPD. Past Drug Use History: None Reported Objective - Vital Signs Vital signs: Vital Signs Temp 97.8 F 06/30/19 11:47 Pulse 83 06/30/19 11:47 Resp 18 06/30/19 11:47 BP 121/68 06/30/19 11:47 Pulse Ox 94 L 06/30/19 11:47 Intake & Output 06/29/19 06/30/19 06/30/19 18:59 06:59 18:59 Weight 67.132 kg - Constitutional General appearance: Present: average body habitus, cooperative - EENT Eyes: Present: EOMI ENT: Present: hearing grossly normal - Neck Details: no adenopathy of concern Neck: Present: normal ROM - Respiratory Respiratory: bilateral: CTA - Cardiovascular Rhythm: regular Heart sounds: normal: S1, S2 - Gastrointestinal General gastrointestinal: Present: normal bowel sounds, soft - Integumentary Integumentary: Present: normal turgor - Musculoskeletal Musculoskeletal: Present: gait normal - Psychiatric Psychiatric: Present: A&O x's 3, appropriate affect, intact judgment & insight - Additional findings Additional findings: breast: BRA 40D Inspection: No skin lesions of concern, no nipple inversion, ptosis grade 2/3 Palpation: Right breast: Multi-positional exam fibrocystic changes no dominant masses or nodules of concern Right axilla: No adenopathy of concern left breast: Multiple positional exam no dominant masses or nodules of concern, fibrocystic changes Left axilla: No adenopathy of concern Assessment and Plan Assessment: Impression: 1. Fibrocystic changes of the breast 2. Status post posterior core biopsy revealing fibroadenoma/fibroadenomatoid change of the right breast stable 3. Hepatitis B 4. Arthritis 5. Hypertension Plan: 1. Repeat bilateral mammogram in 1 year with physician exam at that time 2. Patient to call sooner if she notes anything of concern 3. Medical management of medical conditions Cc: Dr. West encounter 15 minutes, > 50% planning and counselling Time with Patient: Less than 30
== END ==
LOC: WWCWWP 11:04
PROVIDERS: ATTEND Surgery
DX: Z53.9 Procedure and treatment not carried out, unspecified reason (principal)

== ENCOUNTER → 2019-09-06 | Outpatient (CLI) | payer MEDICARE, OTHER ==
[2019-09-06 10:56] LABS: Basophils % (A) 1 %; Eosinophils # (A) 0.1 k/uL (0-0.7); Eosinophils % (A) 2 %; HCT 42.1 % (34.0-46.0); HGB 14.1 gm/dL (11.4-16.0); Lymphocytes # (A) 1.6 k/uL (1.0-4.8); Lymphocytes % (A) 29 %; MCH 31.4 pg (25.0-35.0); MCHC 33.5 g/dL (31.0-37.0); MCV 93.7 fL (80.0-100.0); Mean Platelet Volume 7.1; Monocytes # (A) 0.3 k/uL (0-1.0); Monocytes % (A) 5 %; Neutrophils # (A) 3.3 k/uL (1.3-7.7); Neutrophils % (A) 62 %; Platelet Count 258 k/uL (150-450); RBC 4.49 m/uL (3.80-5.40); RDW 12.4 % (11.5-15.5); WBC 5.3 k/uL (3.8-10.6)
[2019-09-06 15:53] LABS: Albumin 4.3 g/dL (3.80-4.90); Albumin/Globulin Ratio 1.87 (1.60-3.17); Anion Gap 10.2 mmol/L (4.00-12.00); BUN/Creat Ratio 16.67 Ratio (12.00-20.00); Carbon Dioxide 24.8 mmol/L (21.6-31.8); Globulin 2.3 g/dL (1.6-3.3); Non-African American GFR(CKD) 63.9 (60.0-200.0); Potassium 3.9 mmol/L (3.5-5.5); Total Bilirubin 0.5 mg/dL (0.3-1.2); Total Protein 6.6 g/dL (6.2-8.2)
== END | disposition home or self-care (01) ==
LOC: LABWHC1 10:28
PROVIDERS: ATTEND Internal Medicine Gastroenterology
DX: B18.1 Chronic viral hepatitis B without delta-agent (principal)
CPT/HCPCS: 36415; 80053; 82105; 85025

== ENCOUNTER → 2020-03-04 | Outpatient (CLI) | payer MEDICARE, OTHER | END | disposition home or self-care (01) | LOC: LABWHC1 09:19 | PROVIDERS: ATTEND Internal Medicine Gastroenterology | DX: Z53.9 Procedure and treatment not carried out, unspecified reason (principal) ==

== ENCOUNTER → 2020-03-04 | Outpatient (CLI) | payer MEDICARE, OTHER ==
--- NOTE | 2020-03-04 12:39 | US ---
EXAMINATION TYPE: US liver DATE OF EXAM: 03/04/2020 COMPARISON: 09/05/2018 CLINICAL HISTORY: 75-year-old female B18.1 CHR VIRAL HEPATITIS B. TECHNIQUE: Multiple sonographic images of the right upper quadrant are obtained. FINDINGS: EXAM MEASUREMENTS: Liver Length: 13.3 cm Gallbladder Wall: 0.3 cm CBD: 0.5 cm Right Kidney: 10.6 x 4.5 x 4.0 cm Pancreas: Limited visualization of the tip of the pancreatic tail. Visualized portions show no gross abnormality. Liver: Overall homogeneous appearance. No focal lesion. Gallbladder: Nonmobile mural based echogenic nodule measuring 0.5 x 0.2 x 0.4 cm . No shadowing calc ulus. No abnormal gallbladder distention. Wall thickness is borderline at 3 mm. Evidence for sonographic Hernandez's sign: No CBD: wnl Right Kidney: No hydronephrosis; echogenic foci, largest at the mid pole measuring 0.7 x 0.3 x 0.7 c m. No hydronephrosis. IMPRESSION: 1. A 5 mm nonmobile nodule along the gallbladder wall suggestive of a gallbladder wall polyp. Six-mon th follow-up ultrasound recommended to reassess. 2. No biliary ductal dilatation. No focal liver lesion. 3. Right-sided nephrolithiasis measuring up to 7 mm.
== END | disposition home or self-care (01) ==
LOC: RADUSWWP 08:30
PROVIDERS: ATTEND Internal Medicine Gastroenterology
DX: N20.0 Calculus of kidney (principal); K82.8 Other specified diseases of gallbladder; B18.1 Chronic viral hepatitis B without delta-agent
CPT/HCPCS: 76705

== ENCOUNTER → 2020-07-01 | Outpatient (CLI) | payer MEDICARE, OTHER ==
--- NOTE | 2020-07-02 11:24 | MM ---
Reason for exam: screening (asymptomatic). Last mammogram was performed 1 year ago. History: Patient is postmenopausal. Family history of breast cancer in maternal aunt at age 60 and breast cancer in paternal aunt at age 60. Benign MG stereo VAD BX RT of the right breast, January 13, 2019. Benign excisional biopsy of the right breast, 2006. Took estrogen for 5 years beginning at age 32. Physical Findings: A clinical breast exam by your physician is recommended on an annual basis and results should be correlated with mammographic findings. MG 3D Screening Mammo W/Cad Bilateral CC and MLO view(s) were taken. Prior study comparison: June 27, 2019, bilateral MG 3d diag mammo w/cad [facility]AD[facility]I. December 16, 2018, bilateral MG 3d screening mammo w/cad. October 15, 2017, bilateral MG 3d screening mammo w/cad. August 17, 2016, bilateral MG 3d screening mammo w/cad. There are scattered fibroglandular densities. No significant changes when compared with prior studies. ASSESSMENT: Benign, BI-RAD 2 RECOMMENDATION: Routine screening mammogram of both breasts in 1 year.
== END | disposition home or self-care (01) ==
LOC: RADMAMWWP 14:52
PROVIDERS: ATTEND Surgery
DX: Z12.31 Encounter for screening mammogram for malignant neoplasm of breast (principal)
CPT/HCPCS: 77063; 77067

== ENCOUNTER → 2020-07-05 | Outpatient (CLI) | payer MEDICARE, OTHER ==
[2020-07-05 13:50] VITALS: BP 143/84; PULSE 70; RESP 18; TEMP 97.9
--- NOTE | 2020-07-05 14:07 | P.PN ---
Subjective Progress Note Date: 07/05/20 Principal diagnosis: fibrocystic breast changes Fibroadenoma/fibroadenomatoid hyperplasia Georgina is a 75-year-old white female who underwent routine screening mammogram was noted to have an area of concern in the right breast in the upper outer quadrant. This was performed and 7519. No lesions of concern were identified in the left breast. She subsequently had additional views of the right breast and 73188. This revealed coarse heterogeneous grouped calcifications in the 11:00 upper outer quadrant of the right breast. Stereotactic core biopsy was recommended. The patient does not feel anything of concern in her breast. She has no history of any trauma or infection in the breast. Stereotactic core biopsy of the right breast was performed on 8219. This revealed fibroadenoma/fibroadenomatoid hyperplasia with calcifications and background fibrocystic changes. The patient is not complaining of any nipple discharge or skin changes. She had a bilateral mammogram performed on 06/27/2019, this was BIRADS 2 with no lesions of concern noted in either breast. She had a bilateral mammogram on 07-01-20, this is benign BIRAD 2. The patient does not feel any lumps masses or nodules of concern in either breast. She has not had any recent infection or trauma to her breast. Family History: 1. 2 maternal aunts: Breast cancer 2. mother: lung cancer Hormonal history: Menarche:17 breast fed: yes, first born at 22 Menopause: hysterectomy early 30's done for infection related to an IUD, left 1 ovary BCP: 5 years hormones: 10 years, typically right after her hysterectomy and stopped in her early to mid 40s At past surgical history: 1. Hysterectomy and one posteriorly 2. TB into bone and rib removed 3. back fused 4. two total hip replacements 5. right thumb 6. right breast biopsy many years ago Medical history: HTN hepatitis B arthritis Social history: Smoke: Negative Alcohol: Wine every evening Drugs: Negative - Constitutional Constitutional: Denies chills, Denies fever - EENT Eyes: denies blurred vision, denies pain Ears: deny: decreased hearing, tinnitus Ears, nose, mouth and throat: Denies headache, Denies sore throat - Breasts Breasts: bilateral: as per HPI - Cardiovascular Cardiovascular: Reports high blood pressure - Respiratory Respiratory: Denies cough - Gastrointestinal Comment: hepatitis B Gastrointestinal: Denies abdominal pain, Denies diarrhea, Denies nausea, Denies vomiting - Genitourinary (Female) Genitourinary: Reports kidney stones, Denies dysuria, Denies hematuria - Menstruation Menstruation: Reports post hysterectomy - Musculoskeletal Comment: ARTHritis - Integumentary Integumentary: Denies pruritus, Denies rash - Neurological Neurological: Denies numbness, Denies weakness - Psychiatric Psychiatric: Denies anxiety, Denies depression - Endocrine Endocrine: Denies fatigue, Denies weight change - Hematologic/Lymphatic Comment: none Objective - Vital Signs Vital signs: Vital Signs Temp 97.9 F 07/05/20 13:47 Pulse 70 07/05/20 13:47 Resp 18 07/05/20 13:47 BP 143/84 07/05/20 13:47 Pulse Ox 95 07/05/20 13:47 Intake & Output 07/04/20 07/05/20 07/05/20 18:59 06:59 18:59 Weight 68.492 kg - Exam BMI 27.6 - Constitutional General appearance: Present: average body habitus - EENT Eyes: Present: EOMI ENT: Present: hearing grossly normal - Neck Neck: Present: normal ROM - Respiratory Respiratory: bilateral: CTA - Cardiovascular Rhythm: regular Heart sounds: normal: S1, S2 - Gastrointestinal General gastrointestinal: Present: normal bowel sounds, soft - Integumentary Integumentary: Present: normal turgor - Musculoskeletal Musculoskeletal: Present: gait normal - Psychiatric Psychiatric: Present: A&O x's 3, appropriate affect, intact judgment & insight - Additional findings Additional findings: breast exam: BRA: 40D inspection: grade 3 ptosis bilateral palpation: Right breast: Multi-positional exam fibrocystic changes no dominant masses or nodules of concern Right axilla: No adenopathy of concern Left breast: Multiple positional exam fibrocystic changes no dominant masses or nodules of concern Left axilla: No adenopathy of concern Assessment and Plan Assessment: Impression: HTN hepatitis B arthritis Fibrocystic breast changes Recent mammogram benign BIRADS 2 repeat mammogram in 1 year Plan: 1. Medical management of medical conditions 2. Repeat bilateral mammogram in 1 year with physician exam CC: DR. Narayanan encounter 15 minutes > 50% of time in planning and counselling
== END | disposition home or self-care (01) ==
LOC: WWCWWP 13:38
PROVIDERS: ATTEND Surgery
DX: Z53.9 Procedure and treatment not carried out, unspecified reason (principal)

== ENCOUNTER → 2020-09-05 | Outpatient (CLI) | payer MEDICARE, OTHER ==
[2020-09-05 18:35] LABS: Basophils # (A) 0.03 X 10*3/uL (0.00-0.10); Basophils % (A) 0.6 %; Eosinophils # (A) 0.13 X 10*3/uL (0.04-0.35); Eosinophils % (A) 2.5 %; HCT 44.6 % (37.2-46.3); HGB 14.5 g/dL (12.0-15.0); Lymphocytes # (A) 1.63 X 10*3/uL (0.90-5.00); Lymphocytes % (A) 31.1 %; MCH 30.5 pg (27.0-32.0); MCHC 32.5 g/dL (32.0-37.0); MCV 93.9 fL (80.0-97.0); Mean Platelet Volume 10.9 fL (9.5-12.2); Monocytes # (A) 0.44 X 10*3/uL (0.20-1.00); Monocytes % (A) 8.4 %; Neutrophils # (A) 2.99 X 10*3/uL (1.80-7.70); Platelet Count 187 X 10*3/uL (140-440); RBC 4.75 X 10*6/uL (4.10-5.20); RDW 12.5 % (11.5-14.5); WBC 5.24 X 10*3/uL (4.50-10.00)
[2020-09-06 05:38] LABS: African American GFR (CKD) 99.6 (60.0-200.0); Albumin 4.3 g/dL (3.80-4.90); Albumin/Globulin Ratio 2.05 (1.60-3.17); Anion Gap 11.1 mmol/L (4.00-12.00); BUN/Creat Ratio 32.86 Ratio (12.00-20.00); Calcium 10.2 mg/dL (8.7-10.3); Carbon Dioxide 26.9 mmol/L (21.6-31.8); Globulin 2.1 g/dL (1.6-3.3); Potassium 3.7 mmol/L (3.5-5.5); Total Bilirubin 0.6 mg/dL (0.2-1.2); Total Protein 6.4 g/dL (6.2-8.2)
== END | disposition home or self-care (01) ==
LOC: LABWHC1 11:16
PROVIDERS: ATTEND Internal Medicine Gastroenterology
DX: B18.1 Chronic viral hepatitis B without delta-agent (principal)
CPT/HCPCS: 36415; 80053; 82105; 85025

== ENCOUNTER → 2021-03-07 | Outpatient (CLI) | payer MEDICARE, OTHER ==
[2021-03-07 15:16] LABS: Basophils # (A) 0.02 X 10*3/uL (0.00-0.10); Basophils % (A) 0.4 %; Eosinophils # (A) 0.15 X 10*3/uL (0.04-0.35); Eosinophils % (A) 2.8 %; HCT 44.5 % (37.2-46.3); HGB 14.9 g/dL (12.0-15.0); Lymphocytes # (A) 1.49 X 10*3/uL (0.90-5.00); Lymphocytes % (A) 27.9 %; MCH 31.2 pg (27.0-32.0); MCHC 33.5 g/dL (32.0-37.0); MCV 93.3 fL (80.0-97.0); Mean Platelet Volume 10.3 fL (9.5-12.2); Monocytes # (A) 0.48 X 10*3/uL (0.20-1.00); Neutrophils # (A) 3.17 X 10*3/uL (1.80-7.70); Neutrophils % (A) 59.3 %; Platelet Count 163 X 10*3/uL (140-440); RBC 4.77 X 10*6/uL (4.10-5.20); RDW 13.3 % (11.5-14.5); WBC 5.34 X 10*3/uL (4.50-10.00)
[2021-03-07 19:50] LABS: African American GFR (CKD) 98.9 (60.0-200.0); Albumin 4.4 g/dL (3.80-4.90); Anion Gap 9.1 mmol/L (4.00-12.00); BUN/Creat Ratio 25.71 Ratio (12.00-20.00); Calcium 9.9 mg/dL (8.7-10.3); Carbon Dioxide 27.9 mmol/L (21.6-31.8); Globulin 2.2 g/dL (1.6-3.3); Non-African American GFR(CKD) 85.4 (60.0-200.0); Potassium 4.4 mmol/L (3.5-5.5); Total Bilirubin 0.8 mg/dL (0.3-1.2); Total Protein 6.6 g/dL (6.2-8.2)
== END | disposition home or self-care (01) ==
LOC: LABWHC1 09:31
PROVIDERS: ATTEND Internal Medicine Gastroenterology
DX: B18.1 Chronic viral hepatitis B without delta-agent (principal)
CPT/HCPCS: 36415; 80053; 82105; 85025

== ENCOUNTER → 2021-05-14 | Outpatient (CLI) | payer MEDICARE, OTHER ==
--- NOTE | 2021-05-14 12:05 | US ---
EXAMINATION TYPE: US liver DATE OF EXAM: 05/14/2021 COMPARISON: NONE CLINICAL HISTORY: B18.1 CHR VIRAL HEP B. chronic hep B, no symptoms EXAM MEASUREMENTS: Liver Length: 13.9 cm Gallbladder Wall: 0.2 cm CBD: 0.5 cm Right Kidney: 9.8 x 5.0 x 4.7 cm Pancreas: wnl Liver: wnl . No masses are identified. Gallbladder: wnl Evidence for sonographic Hernandez's sign: no CBD: wnl Right Kidney: 0.9cm nonobstructing mid pole renal stone seen IMPRESSION: 1. Normal-appearing liver. 2. Nonobstructing right renal stone
== END | disposition home or self-care (01) ==
LOC: RADUSWWP 07:24
PROVIDERS: ATTEND Internal Medicine Gastroenterology
DX: B18.1 Chronic viral hepatitis B without delta-agent (principal); N20.0 Calculus of kidney
CPT/HCPCS: 76705

== ENCOUNTER → 2021-07-03 | Outpatient (CLI) | payer MEDICARE, OTHER ==
--- NOTE | 2021-07-04 12:03 | MM ---
Reason for exam: screening (asymptomatic). Last mammogram was performed 1 year ago. History: Patient is postmenopausal. Family history of breast cancer in maternal aunt at age 60 and breast cancer in paternal aunt at age 60. Benign MG stereo VAD BX RT of the right breast, January 13, 2019. Benign excisional biopsy of the right breast, 2006. Took estrogen for 5 years beginning at age 32. Physical Findings: A clinical breast exam by your physician is recommended on an annual basis and results should be correlated with mammographic findings. MG 3D Screening Mammo W/Cad Bilateral CC, MLO, and XCCL view(s) were taken. Prior study comparison: July 01, 2020, bilateral MG 3d screening mammo w/cad. June 27, 2019, bilateral MG 3d diag mammo w/cad [facility]. The breast tissue is heterogeneously dense. This may lower the sensitivity of mammography. There are benign appearing round calcifications bilaterally. Previous mammotome biopsy in the right breast. There is chronic nodularity bilaterally. Asymmetric breast tissue in the left breast, anterior position, stable. There is no discrete abnormality. ASSESSMENT: Benign, BI-RAD 2 RECOMMENDATION: Routine screening mammogram of both breasts in 1 year.
== END | disposition home or self-care (01) ==
LOC: RADMAMWWP 12:45
PROVIDERS: ATTEND Surgery
DX: Z12.31 Encounter for screening mammogram for malignant neoplasm of breast (principal); Z78.0 Asymptomatic menopausal state; Z80.3 Family history of malignant neoplasm of breast
CPT/HCPCS: 77063; 77067

== ENCOUNTER → 2021-07-10 | Outpatient (CLI) | payer MEDICARE, OTHER ==
[2021-07-10 12:49] VITALS: BP 176/88; PULSE 71; RESP 18; TEMP 98.6
--- NOTE | 2021-07-10 12:55 | P.PN ---
Subjective Progress Note Date: 07/10/21 Principal diagnosis: fibrocystic breast changes Fibroadenoma/fibroadenomatoid hyperplasia Georgina is a 76-year-old white female who underwent routine screening mammogram was noted to have an area of concern in the right breast in the upper outer quadrant. This was performed and 7519. No lesions of concern were identified in the left breast. [place] [address]. This revealed coarse heterogeneous grouped calcifications in the 11:00 upper outer quadrant of the right breast. Stereotactic core biopsy was recommended. The patient did not feel anything of concern in her breast. She had no history of any trauma or infection in the breast. Stereotactic core biopsy of the right breast was performed on 8219. This revealed fibroadenoma/fibroadenomatoid hyperplasia with calcifications and background fibrocystic changes. The patient was not complaining of any nipple discharge or skin changes. She is not complaining of any masses lumps or nodules in her breasts. She has not had any recent infection or trauma to her breast. No complaints of any pain in her breast. She had a bilateral mammogram performed on 06/27/2019, this was BIRADS 2 with no lesions of concern noted in either breast. The patient most recently had a bilateral mammogram on 07-03-21 which was benign BIRAD 2. She had not noted any lumps, masses, or nodules of concern in either breast. Family History: 1. 2 maternal aunts: Breast cancer 2. mother: lung cancer Hormonal history: Menarche:17 breast fed: yes, first born at 22 Menopause: hysterectomy early 30's done for infection related to an IUD, left 1 ovary BCP: 5 years hormones: 10 years, typically right after her hysterectomy and stopped in her early to mid 40s At past surgical history: 1. Hysterectomy and one posteriorly 2. TB into bone and rib removed 3. back fused 4. two total hip replacements 5. right thumb 6. right breast biopsy many years ago Medical history: HTN hepatitis B arthritis Social history: Smoke: Negative Alcohol: Wine every evening Drugs: Negative - Constitutional Constitutional: Denies chills, Denies fever - EENT Eyes: denies blurred vision, denies pain Ears: deny: decreased hearing, tinnitus Ears, nose, mouth and throat: Denies headache, Denies sore throat - Breasts Breasts: bilateral: as per HPI - Cardiovascular Cardiovascular: Reports high blood pressure - Respiratory Respiratory: Denies cough - Gastrointestinal Comment: hepatitis B Gastrointestinal: Denies abdominal pain, Denies diarrhea, Denies nausea, Denies vomiting - Genitourinary (Female) Genitourinary: Reports kidney stones, Denies dysuria, Denies hematuria - Menstruation Menstruation: Reports post hysterectomy - Musculoskeletal Comment: ARTHritis - Integumentary Integumentary: Denies pruritus, Denies rash - Neurological Neurological: Denies numbness, Denies weakness - Psychiatric Psychiatric: Denies anxiety, Denies depression - Endocrine Endocrine: Denies fatigue, Denies weight change - Hematologic/Lymphatic Comment: none - Allergic/Immunologic Allergic/Immunologic: Reports as per HPI Objective - Constitutional General appearance: Present: cooperative - EENT Eyes: Present: EOMI ENT: Present: hearing grossly normal - Neck Neck: Present: normal ROM - Respiratory Respiratory: bilateral: CTA - Cardiovascular Rhythm: regular Heart sounds: normal: S1, S2 - Gastrointestinal General gastrointestinal: Present: soft - Integumentary Integumentary: Present: normal turgor - Musculoskeletal Musculoskeletal: Present: gait normal - Psychiatric Psychiatric: Present: A&O x's 3, appropriate affect, intact judgment & insight - Additional findings Additional findings: Breast Exam: BRA: 40DD inspection: bilateral grade 3 ptosis palpation: right breast: Multi-positional exam fibrocystic changes, no dominant masses or nodules of concern, fungal infection under right breast Right axilla: No adenopathy of concern Left breast: Multiple positional exam fibrocystic changes no dominant masses or nodules of concern Left axilla: No adenopathy of concern Assessment and Plan Assessment: Impression: HTN hepatitis B arthritis fibrocystic changes bilateral fungal infection under right breast Plan: 1. bilateral mammogram in one year with examination at that time 2. Nystatin cream under right breast 3. follow up in on year sooner if any concerns CC: DR. Narayanan
== END ==
LOC: WWCWWP 12:16
PROVIDERS: ATTEND Surgery
DX: N60.12 Diffuse cystic mastopathy of left breast (principal); N60.11 Diffuse cystic mastopathy of right breast; I10 Essential (primary) hypertension; K75.89 Other specified inflammatory liver diseases; M19.90 Unspecified osteoarthritis, unspecified site; B36.8 Other specified superficial mycoses; Z87.891 Personal history of nicotine dependence; Z79.899 Other long term (current) drug therapy

== ENCOUNTER → 2021-09-11 | Outpatient (CLI) | payer MEDICARE, OTHER ==
[2021-09-11 18:02] LABS: Basophils # (A) 0.04 X 10*3/uL (0.00-0.10); Basophils % (A) 0.7 %; Eosinophils % (A) 3.5 %; HCT 45.3 % (37.2-46.3); HGB 14.9 g/dL (12.0-15.0); Immature Grans, Automated 0.2 %; Lymphocytes % (A) 31.1 %; MCH 29.9 pg (27.0-32.0); MCHC 32.9 g/dL (32.0-37.0); Mean Platelet Volume 10.4 fL (9.5-12.2); Monocytes # (A) 0.49 X 10*3/uL (0.20-1.00); Monocytes % (A) 8.5 %; NRBC Per 100 WBC 0 /100 WBCS (0.0-0.0); Neutrophils # (A) 3.25 X 10*3/uL (1.80-7.70); Platelet Count 193 X 10*3/uL (140-440); RBC 4.98 X 10*6/uL (4.10-5.20); RDW 13.9 % (11.5-14.5); WBC 5.79 X 10*3/uL (4.50-10.00)
[2021-09-11 18:08] LABS: African American GFR (CKD) 101.4 (60.0-200.0); Albumin 4.3 g/dL (3.8-4.9); Albumin/Globulin Ratio 1.88 (1.60-3.17); Anion Gap 12.1 mmol/L (10.00-18.00); BUN/Creat Ratio 29.12 Ratio (12.00-20.00); Blood Urea Nitrogen 18.9 mg/dL (9.0-27.0); Calcium 10.1 mg/dL (8.7-10.3); Carbon Dioxide 26.3 mmol/L (20.0-27.5); Globulin 2.3 g/dL (1.6-3.3); Non-African American GFR(CKD) 87.5 (60.0-200.0); Potassium 3.9 mmol/L (3.5-5.5); Total Bilirubin 0.5 mg/dL (0.30-1.20); Total Protein 6.6 g/dL (6.2-8.2)
== END | disposition home or self-care (01) ==
LOC: LABWHC1 11:12
PROVIDERS: ATTEND Internal Medicine Gastroenterology
DX: B18.1 Chronic viral hepatitis B without delta-agent (principal)
CPT/HCPCS: 36415; 80053; 82105; 85025

== ENCOUNTER → 2022-03-16 | Outpatient (CLI) | payer MEDICARE, OTHER ==
[2022-03-16 14:43] LABS: African American GFR (CKD) 95.9 (60.0-200.0); Albumin 4.1 g/dL (3.8-4.9); Albumin/Globulin Ratio 1.8 (1.60-3.17); Anion Gap 9.5 mmol/L (10.00-18.00); BUN/Creat Ratio 24.93 Ratio (12.00-20.00); Blood Urea Nitrogen 17.8 mg/dL (9.0-27.0); Calcium 9.8 mg/dL (8.7-10.3); Globulin 2.3 g/dL (1.6-3.3); Non-African American GFR(CKD) 82.8 (60.0-200.0); Potassium 4.3 mmol/L (3.5-5.5); Total Bilirubin 0.4 mg/dL (0.30-1.20); Total Protein 6.3 g/dL (6.2-8.2)
[2022-03-16 16:49] LABS: Basophils # (A) 0.04 X 10*3/uL (0.00-0.10); Basophils % (A) 0.7 %; Eosinophils # (A) 0.28 X 10*3/uL (0.04-0.35); Eosinophils % (A) 4.9 %; HGB 14.4 g/dL (12.0-15.0); Immature Grans, Automated 0.9 %; Lymphocytes # (A) 1.61 X 10*3/uL (0.90-5.00); Lymphocytes % (A) 28.1 %; MCH 30.2 pg (27.0-32.0); MCHC 33.5 g/dL (32.0-37.0); MCV 90.1 fL (80.0-97.0); Mean Platelet Volume 10.3 fL (9.5-12.2); Monocytes # (A) 0.46 X 10*3/uL (0.20-1.00); NRBC Per 100 WBC 0 /100 WBCS (0.0-0.0); Neutrophils # (A) 3.28 X 10*3/uL (1.80-7.70); Neutrophils % (A) 57.4 %; Platelet Count 201 X 10*3/uL (140-440); RBC 4.77 X 10*6/uL (4.10-5.20); RDW 13.8 % (11.5-14.5); WBC 5.72 X 10*3/uL (4.50-10.00)
== END | disposition home or self-care (01) ==
LOC: LABWHC1 10:15
PROVIDERS: ATTEND Internal Medicine Gastroenterology
DX: B18.1 Chronic viral hepatitis B without delta-agent (principal)
CPT/HCPCS: 36415; 80053; 82105; 85025

== ENCOUNTER → 2022-07-06 | Outpatient (CLI) | payer MEDICARE, OTHER ==
--- NOTE | 2022-07-07 08:35 | MM ---
Reason for Exam: Screening (asymptomatic). Last screening mammogram was performed 12 month(s) ago. Patient History: Menarche at age 17. First Full-Term at age 22. Left ovary removed at age 32. Right ovary removed at age 32. Hysterectomy at age 32. Postmenopausal. Patient has history of breast feeding. Estrogen for 5 years from age 32 until age 37. 2006, Benign Excisional Biopsy on the right side. 01/13/2019, Benign Core Biopsy on the right side. Paternal aunt had breast cancer, age 60. Maternal aunt had breast cancer, age 60. Risk Values: Kamini 5 year model risk: 2.2%. NCI Lifetime model risk: 4.7%. Prior Study Comparison: 06/27/2019 Bilateral Diagnostic Mammogram, [facility]. 07/01/2020 Bilateral Screening Mammogram, [facility]. 07/03/2021 Bilateral Screening Mammogram, [facility]. Tissue Density: The breast tissue is heterogeneously dense. This may lower the sensitivity of mammography. Findings: Analyzed By CAD. There is no suspicious group of microcalcifications or new suspicious mass in either breast. Overall Assessment: Benign, BI-RAD 2 Management: Screening Mammogram of both breasts in 1 year. A clinical breast exam by your physician is recommended on an annual basis and results should be correlated with mammographic findings. Electronically signed and approved by: Abel Quiroga M.D. [facility]
== END | disposition home or self-care (01) ==
LOC: RADMAMWWP 08:50
PROVIDERS: ATTEND Surgery
DX: Z12.31 Encounter for screening mammogram for malignant neoplasm of breast (principal); Z78.0 Asymptomatic menopausal state; Z80.3 Family history of malignant neoplasm of breast; Z98.890 Other specified postprocedural states
CPT/HCPCS: 77063; 77067

== ENCOUNTER → 2022-07-10 | Outpatient (CLI) | payer MEDICARE, OTHER ==
[2022-07-10 09:44] VITALS: BP 182/97; PULSE 74; RESP 17; TEMP 98
--- NOTE | 2022-07-10 09:51 | P.PN ---
Subjective Progress Note Date: 07/10/22 Principal diagnosis: fibrocystic breast disease fibrocystic breast changes Fibroadenoma/fibroadenomatoid hyperplasia Georgina is a 77-year-old white female who underwent routine screening mammogram was noted to have an area of concern in the right breast in the upper outer quadrant. This was performed and 7519. No lesions of concern were identified in the left breast. [place] [id number]. This revealed coarse heterogeneous grouped calcifications in the 11:00 upper outer quadrant of the right breast. Stereotactic core biopsy was recommended. The patient did not feel anything of concern in her breast. She had no history of any trauma or infection in the breast. Stereotactic core biopsy of the right breast was performed on 8219. This revealed fibroadenoma/fibroadenomatoid hyperplasia with calcifications and filipe kground fibrocystic changes. The patient was not complaining of any nipple discharge or skin changes. She is not complaining of any masses lumps or nodules in her breasts. She has not had any recent infection or trauma to her breast. No complaints of any pain in her breast. She had a bilateral mammogram performed on 06/27/2019, this was BIRADS 2 with no lesions of concern noted in either breast. The patient most recently had a bilateral mammogram on 07-06-22 which was benign BIRAD 2. She had not noted any lumps, masses, or nodules of concern in either breast. Mammogram personally reviewed Kamini risk: 2.2 % 5 year Family History: 1. 2 maternal aunts: Breast cancer 2. mother: lung cancer Hormonal history: Menarche:17 breast fed: yes, first born at 22 Menopause: hysterectomy early 30's done for infection related to an IUD, left 1 ovary BCP: 5 years hormones: 10 years, typically right after her hysterectomy and stopped in her early to mid 40s At past surgical history: 1. Hysterectomy and one posteriorly 2. TB into bone and rib removed 3. back fused 4. two total hip replacements 5. right thumb 6. right breast biopsy many years ago Medical history: HTN hepatitis B arthritis Social history: Smoke: Negative Alcohol: Wine every evening Drugs: Negative - Constitutional Constitutional: Denies chills, Denies fever - EENT Eyes: denies blurred vision, denies pain Ears: deny: decreased hearing, tinnitus Ears, nose, mouth and throat: Denies headache, Denies sore throat - Breasts Breasts: bilateral: as per HPI - Cardiovascular Cardiovascular: Reports high blood pressure - Respiratory Respiratory: Denies cough - Gastrointestinal Comment: hepatitis B Gastrointestinal: Denies abdominal pain, Denies diarrhea, Denies nausea, Denies vomiting - Genitourinary (Female) Genitourinary: Reports kidney stones, Denies dysuria, Denies hematuria - Menstruation Menstruation: Reports post hysterectomy - Musculoskeletal Comment: ARTHritis, uses a cane - Integumentary Integumentary: Denies pruritus, Denies rash - Neurological Neurological: Denies numbness, Denies weakness - Psychiatric Psychiatric: Denies anxiety, Denies depression - Endocrine Endocrine: Denies fatigue, Denies weight change - Hematologic/Lymphatic Comment: none - Allergic/Immunologic Allergic/Immunologic: Reports as per HPI Objective - Constitutional General appearance: Present: cooperative - EENT Eyes: Present: EOMI ENT: Present: hearing grossly normal - Neck Neck: Present: normal ROM - Respiratory Respiratory: bilateral: CTA - Cardiovascular Rhythm: regular Heart sounds: normal: S1, S2 - Integumentary Integumentary: Present: normal turgor - Musculoskeletal Musculoskeletal Comment(s): uses a cane to walk - Psychiatric Psychiatric: Present: A&O x's 3, appropriate affect, intact judgment & insight - Additional findings Additional findings: Breast Exam: BRA: 40DD inspection: bilateral grade 3 ptosis palpation: right breast: Multi-positional exam fibrocystic changes, no dominant masses or nodules of concern Right axilla: No adenopathy of concern Left breast: Multiple positional exam fibrocystic changes no dominant masses or nodules of concern Left axilla: No adenopathy of concern Assessment and Plan Assessment: Impression: HTN hepatitis B arthritis fibrocystic changes bilateral Plan: 1. bilateral mammogram in one year with examination at that time 2. follow up in on year sooner if any concerns
== END ==
LOC: WWCWWP 09:33
PROVIDERS: ATTEND Surgery
DX: Z85.3 Personal history of malignant neoplasm of breast (principal); I10 Essential (primary) hypertension; M19.90 Unspecified osteoarthritis, unspecified site; B19.10 Unspecified viral hepatitis B without hepatic coma; Z87.891 Personal history of nicotine dependence

== ENCOUNTER → 2022-09-07 | Outpatient (CLI) | payer MEDICARE, OTHER ==
[2022-09-07 10:36] LABS: INR 0.9 (<1.2); Partial Thromboplastin Time 23.3 sec (22.0-30.0); Prothrombin Time 9.9 sec (9.0-12.0)
--- NOTE | 2022-09-07 10:36 | XR ---
EXAMINATION TYPE: XR chest 2V DATE OF EXAM: 09/07/2022 COMPARISON: NONE TECHNIQUE: PA and lateral views submitted. HISTORY: Preop FINDINGS: The lungs are clear and there is no pneumothorax, pleural effusion, or focal pneumonia. Heart size normal and no overt failure. Osseous structures intact. Atherosclerotic change aorta. IMPRESSION: 1. No acute process.
[2022-09-07 14:59] LABS: Basophils # (A) 0.02 X 10*3/uL (0.00-0.10); Basophils % (A) 0.5 %; Eosinophils # (A) 0.14 X 10*3/uL (0.04-0.35); Eosinophils % (A) 3.2 %; HCT 43.5 % (37.2-46.3); HGB 14.6 g/dL (12.0-15.0); Immature Grans, Automated 0.5 %; Lymphocytes % (A) 25.5 %; MCH 30.8 pg (27.0-32.0); MCHC 33.6 g/dL (32.0-37.0); MCV 91.8 fL (80.0-97.0); Mean Platelet Volume 9.8 fL (9.5-12.2); Monocytes # (A) 0.44 X 10*3/uL (0.20-1.00); Monocytes % (A) 10.2 %; NRBC Per 100 WBC 0 /100 WBCS (0.0-0.0); Neutrophils # (A) 2.59 X 10*3/uL (1.80-7.70); Neutrophils % (A) 60.1 %; Platelet Count 219 X 10*3/uL (140-440); RBC 4.74 X 10*6/uL (4.10-5.20); WBC 4.31 X 10*3/uL (4.50-10.00)
[2022-09-07 15:41] LABS: Appearance,Urine Clear (Clear); Bilirubin,Urine Negative (Negative); Blood,Urine Negative (Negative); Color,Urine Yellow (Yellow); Ketones,Urine Negative (Negative); Nitrite,Urine Negative (Negative); PH, Urine 7.5 (5.0-8.0); Specific Gravity,Urine 1.013 (1.001-1.030); Urobilinogen,Urine 0.2 (0.2,1.0)
[2022-09-07 17:22] LABS: African American GFR (CKD) 98.2 (60.0-200.0); Albumin 4.3 g/dL (3.8-4.9); Albumin/Globulin Ratio 1.79 (1.60-3.17); Anion Gap 12.9 mmol/L (10.00-18.00); BUN/Creat Ratio 23.14 Ratio (12.00-20.00); Blood Urea Nitrogen 16.2 mg/dL (9.0-27.0); Calcium 10.1 mg/dL (8.7-10.3); Carbon Dioxide 27.1 mmol/L (20.0-27.5); Globulin 2.4 g/dL (1.6-3.3); Non-African American GFR(CKD) 84.8 (60.0-200.0); Total Bilirubin 0.4 mg/dL (0.30-1.20); Total Protein 6.7 g/dL (6.2-8.2)
== END | disposition home or self-care (01) ==
LOC: LABPAT 09:10
PROVIDERS: ATTEND Orthopaedic Surgery Orthopaedic Surgery of the Spine
DX: Z01.818 Encounter for other preprocedural examination (principal); M48.02 Spinal stenosis, cervical region
CPT/HCPCS: 71046; 80053; 81003; 85025; 85610; 85730

== ENCOUNTER 2022-09-16 11:33 | Inpatient (IN) | payer MEDICARE, OTHER ==
[2022-09-14 11:59] VITALS: BMI 27.1
[~2022-09-16 11:33] MED LIST changes: +DEXAMETHASONE SOD PHOSPHATE 4 MG/ML 1 ML VIAL IV ONE; +HYDROmorphone 0.5 MG/0.5 ML SYRINGE IVP PRN; +LIDOCAINE 1% (10MG/ML) FOR IV START INTRADERMA PRN; -LIDOCAINE 1% 20 ML VIAL (10MG/ML) FOR IV START INTRADERMA PRN; -MIDAZOLAM 2 MG/2 ML VIAL IV PRN; +ONDANSETRON 4 MG/2 ML VIAL IVP ONE; +ceFAZolin 1,000 MG in SODIUM CHLORIDE 0.9% IRRIGATIO 1,000 ML IRRIGATION PRN
[2022-09-16] MEDS: LACTATED RINGERS 1,000 ML IV SCH (12:14)
[2022-09-16] MEDS ORDERED: LIDOCAINE 2%-EPI 1:100,000 20 ML VIAL SQ ONE ×2 (12:29→13:16)
[2022-09-16] MEDS ORDERED: PHENYLEPHRINE-0.9% NACL SYG 1,000 MCG/10 ML SYRINGE ONE (12:41)
[2022-09-16] MEDS ORDERED: SUCCINYLCHOLINE CHLORIDE 200 MG/10 ML VIAL IV ONE (12:41)
[2022-09-16] MEDS ORDERED: GLYCOPYRROLATE 0.2 MG/ML 2 ML VIAL ONE (12:41)
[2022-09-16] MEDS ORDERED: LIDOCAINE 2% INJ 20 MG/ML (2 ML VIAL) ONE (12:41)
[2022-09-16] MEDS ORDERED: NEOSTIGMINE 1 MG/ML 10 ML VIAL ONE (12:41)
[2022-09-16] MEDS ORDERED: PROPOFOL 10 MG/ML 20 ML VIAL IV ONE (12:41)
[2022-09-16] MEDS ORDERED: fentaNYL (PF) 50 MCG/ML 2 ML AMP ONE (12:41)
[2022-09-16] MEDS ORDERED: ROCURONIUM 10 MG/ML (5 ML VIAL) IV ONE (12:41)
[2022-09-16] MEDS ORDERED: DEXAMETHASONE SOD PHOSPHATE 4 MG/ML 1 ML VIAL ONE (12:41)
[2022-09-16] MEDS ORDERED: LACTATED RINGERS 1,000 ML IV ONE ×2 (13:51→16:01)
[2022-09-16] MEDS ORDERED: THROMBIN (BOVINE) 5,000 UNIT VIAL TOPICAL ONE (14:23)
[2022-09-16] MEDS ORDERED: GELATIN SPONGE,ABSORB (LARGE) 1 EACH SPONGE TOPICAL ONE (14:23)
--- NOTE | 2022-09-16 14:27 | XR ---
EXAMINATION TYPE: XR cervical spine 1V DATE OF EXAM: 09/16/2022 COMPARISON: NONE HISTORY: Needle placement TECHNIQUE: One view is submitted. FINDINGS: Endotracheal tube seen with a surgical instrument anterior to the mid to lower cervical vertebral col umn with multilevel degenerative disc disease. IMPRESSION: 1. Intraoperative localization.
--- NOTE | 2022-09-16 15:10 | XR ---
EXAMINATION TYPE: XR cervical spine 1V DATE OF EXAM: 09/16/2022 COMPARISON: NONE HISTORY: Hardware placement TECHNIQUE: One view submitted FINDINGS: ET tube is seen and there is postsurgical change involving the mid and lower cervical spine was grossly appears in near-anatomic alignment. Facet arthropathy noted. IMPRESSION: Postoperative change
[2022-09-16] MEDS ORDERED: MAGNESIUM HYDROXIDE 2,400 MG/10 ML CUP PO PRN (15:16)
[2022-09-16] MEDS ORDERED: HYDROmorphone 0.5 MG/0.5 ML SYRINGE IVP PRN (15:16)
[2022-09-16] MEDS ORDERED: BENZOCAINE/MENTHOL LOZENG 1 EACH LOZENGE MUCOUS MEM PRN (15:16)
[2022-09-16] MEDS ORDERED: CYCLOBENZAPRINE 10 MG TAB PO PRN (15:18)
[2022-09-16] MEDS ORDERED: ONDANSETRON 4 MG/2 ML VIAL IVP PRN (15:18)
--- NOTE | 2022-09-16 15:33 | P.OP ---
Date of Procedure: 09/16/22 Preoperative Diagnosis: Cervical myelopathy, severe cervical stenosis C4 5 C5 6 C6 7, degenerative disc disease, lower extremity radiculopathy, upper extremity weakness neck pain, Postoperative Diagnosis: Same Anesthesia: GETA Pathology: none sent Condition: stable Disposition: PACU Description of Procedure: BRIEF OPERATIVE NOTE Preoperative Diagnosis:Cervical myelopathy, severe cervical stenosis C4 5 C5 6 C6 7, degenerative disc disease, lower extremity radiculopathy, upper extremity weakness neck pain, Postoperative Diagnosis:Cervical myelopathy, severe cervical stenosis C4 5 C5 6 C6 7, degenerative disc disease, lower extremity radiculopathy, upper extremity weakness neck pain, Procedure: Anterior cervical decompression with discectomy and fusion C4 5 C5 6 C6 7 Placement of interbody graft C4 5 C5 6 C6 7 Application of anterior cervical plate C4 5 6 and 7 Surgeon: Dr. Rodriguez Hadoop Admin: Ladarius Robert is present throughout the entire the case persistence during positioning, dissection, exposure, visualization, and all crucial elements of the case as well as closure. Anesthesia: General anesthesia Estimated blood loss: Approximately 100 mL Complications: None apparent Components implanted: K2M Jerome interdigital plate system with plate and screws and vikos interbody allograft bone graft and 1 mL of DBX bone putty Disposition: To recovery room in good stable condition. OPERATIVE INDICATIONS The patient has had long-standing issues in their neck and upper extremities. The patient was having worsening symptoms at her neck and her bilateral upper extremities. She is having some difficulty with coordination in her hands and fingers and was found have severe stenosis with evidence of early myelopathy. She had severe stenosis C4 5 C5 6 C6 7 which correlated well with her neck and upper extremity symptoms. The patient has been through conservative treatment. We discussed various treatment options including surgery, and the patient wishes to proceed with surgery We discussed the risk, patient's alternatives and benefits of surgery including but not limited to, risk of bleeding risk of infection, risk of need for further surgery, risk of decreased, loss of motion, muscle function, malunion nonunion, hardware failure, nerve damage, paralysis, heart attack, and . OPERATIVE SUMMARY After discussing all the risks, patient alternatives and benefits at length, the patient elected to proceed with surgical intervention, signed informed consent, and presented for their procedure. The patient was seen and examined in the preoperative holding area and the surgical site was marked. The patient was given antibiotics and brought to the operating room. The patient was positioned on the operating room table in a supine position being careful to pad any bony prominences and pressure points. The patient was sedated and intubated by anesthesia in standard fashion. Once the airway and C- spine were stabilized the patient's arms were padded and tucked at her side, with her shoulders gently taped. The head was placed in a donut pad with the neck in good neutral alignment and position. We were careful to maintain the patient's cervical spine and good neutral alignment and position throughout. The patient was prepped and draped in a normal standard fashion. An appropriate timeout and keystone protocol performed. We were able to proceed with the surgery. The local wound area was infiltrated with local anesthetic. An incision was made transversely approximately 2-1/2 cm over the appropriate levels at C5 6. Dissection was taken down subcutaneously to the level of the platysma which was split in line with its fibers. Dissection was taken with a carotid approach, with the trachea and esophagus medial and the carotid sheath laterally. We dissected down to the anterior surface of the vertebral bodies. Intraoperative x-ray was taken which showed a marker at the appropriate level at C5 6. With the appropriate level positively confirmed, we were able to proceed with discectomy at the appropriate levels. All of the operative levels were exposed appropriately. The patient had all their twitches back, and there was no evidence of recurrent laryngeal issue. The wound was copiously irrigated and suctioned dry as had been done periodically throughout the case. At the appropriate level/levels, starting at C6 7 and then moving to C5 6 and then C4 5 I had to remove large anterior cervical osteophytes and then I established an annulotomy with an 11 blade scalpel. There is severe disc height loss and disc degeneration. A discectomy was performed with a combination of pituitary rongeurs, curettes, a high-speed bur, and Kerrison rongeurs. The posterior longitudinal ligament was taken down as were any posterior osteophytes. This gave good central and bilateral foraminal decompression. There is no evidence of any dural tear or leak. The endplates were prepared with a high-speed bur. With the endplates in good parallel position, I was able to size for the appropriate size interbody graft. The wound was irrigated and suctioned dry the graft was prepared and malleted into position. It had good alignment and position with the anterior surface flush with the anterior surface of the vertebral bodies. This was done similarly the appropriate levels starting at C6 7 and then at C56 and then at the L4 5. With the grafts intact, I was able to measure and contour and appropriate sized plate. The plate was positioned at the midline over the appropriate levels from C4 to C7. Screw holes were established with a hand drill and drill guide. Screws were placed in good alignment and position with excellent bony purchase. They were seated under the locking device. The construct was checked and found to be stable. Intraoperative x-ray was taken which showed good alignment and position of the implants at the appropriate levels. There was no evidence of any dural tear or leak. Good hemostasis was maintained. The wound was copiously irrigated and suctioned dry as had been done periodically throughout the case. The platysma was closed with absorbable suture. The subcutaneous tissue was closed. The subcuticular tissue was closed with absorbable suture. The wound was cleaned and dried and dressed appropriately. A soft cervical collar was placed appropriately. The patient was woken up by anesthesia, extubated, transferred back gently to their hospital bed and brought to the recovery room in good stable condition. The patient will be admitted to the hospital for appropriate postoperative care, medical management and monitoring. We will continue to follow them closely about the postoperative course.
[2022-09-16] MEDS ORDERED: OXYBUTYNIN 10 MG TAB.ER.24 PO SCH (21:00)
[2022-09-16] MEDS ORDERED: ATORVASTATIN 10 MG TAB PO SCH (21:00)
[2022-09-16] MEDS: SODIUM CHLORIDE 0.9% 1,000 ML IV SCH (21:20)
[2022-09-16] MEDS: HYDROcodone/APAP 5-325MG 1 EACH TAB PO PRN (23:40)
[2022-09-17] MEDS: SODIUM CHLORIDE 0.9% 1,000 ML IV SCH (06:01)
[2022-09-17] MEDS: HYDROcodone/APAP 5-325MG 1 EACH TAB PO PRN (06:07)
[2022-09-17 07:43] VITALS: BP 138/85; PULSE 91; RESP 16; TEMP 98.1
[2022-09-17] MEDS ORDERED: lisinopriL 20 MG TAB PO SCH (09:00)
[2022-09-17] MEDS ORDERED: NON FORMULARY DRUG (Omega-3 Fatty Acids [Omega-3] 1,000 MG Capsule) PO SCH (09:00)
[2022-09-17] MEDS ORDERED: PANTOPRAZOLE 40 MG TABLET PO SCH (09:00)
[2022-09-17] MEDS ORDERED: hydroCHLOROthiazide 25 MG TAB PO SCH (09:00)
[2022-09-17] MEDS ORDERED: SENNOSIDES-DOCUSATE SODIUM 1 EACH TAB PO SCH ×2 (09:00)
[2022-09-17] MEDS ORDERED: CHOLECALCIFEROL 10 MCG (400 IU) TABLET PO SCH (09:00)
[2022-09-17] MEDS ORDERED: atenoloL 50 MG TAB PO SCH (09:00)
[2022-09-17] MEDS ORDERED: NON FORMULARY DRUG (Ubidecarenone [Co Q-10] 400 MG Capsule) PO SCH (09:00)
[2022-09-17] MEDS ORDERED: CALCIUM CARBONATE 500 MG CHEWABLE PO SCH (09:00)
[2022-09-17] MEDS ORDERED: NON FORMULARY DRUG (Cranberry Fruit Extract [Cranberry] 500 MG Tablet) PO SCH (09:00)
--- NOTE | 2022-09-17 10:46 | P.DS ---
Providers Date of admission: 09/16/22 11:33 Attending physician: Janet Rodriguez Primary care physician: Jamar Kathe [facility] Course: The patient presented on the day of admission as per their operative note. She underwent anterior cervical decompression with discectomy and fusion for her severe cervical stenosis with myelopathy and radiculopathy. She feels she is doing very well. Her arms are feeling good today. She is swallowing her soft diet and mobile in her room. Physical Exam The incision site is clean dry and intact. There is no erythema no drainage. There is no purulence no evidence of infection. Abdomen soft and nontender. Chest has good excursion with deep inspiration and expiration. The patient has active and passive range of motion intact at the upper and lower extremities. There is no acute change in neurologic status. Hospital Course Postoperative day #1 status post anterior cervical decompression with discectomy and fusion C5 or 5 C5 6 C6 7 for her cervical myelopathy with severe stenosis and radiculopathy The patient has been making good progress postoperatively. They have completed the prophylactic antibiotics without any signs or symptoms of infection. The patient has been able to advance their diet, and is stephy erating diet adequately. The pain was initially controlled with IV medications and is now controlled appropriately with oral medications. The patient has been able to increase their mobilization. The patient has progressed appropriately. I think they are in good stable condition for discharge today. They will be sent home with appropriate prescriptions. I answered their questions to the best of my ability in a language that they can understand and they are agreeable with the plan. They will follow up as directed. Patient Condition at Discharge: Good Plan - Discharge Summary Discharge Rx Participant: No New Discharge Prescriptions: New traMADol HCl [Ultram] 50 mg PO Q6HR PRN #28 tab PRN Reason: Pain No Action Simvastatin [Zocor] 20 mg PO HS lisinopriL 40 mg PO QAM hydroCHLOROthiazide [Hydrodiuril] 25 mg PO QAM atenoloL 100 mg PO QAM Ubidecarenone [Co Q-10] 100 mg PO QAM Omeprazole 20 mg PO QAM Tolterodine Tartrate [Detrol LA] 4 mg PO HS Ponderosa-3 Fatty Acids [Ponderosa-3] 1,030 mg PO DAILY Celecoxib [CeleBREX] 200 mg PO DAILY Naproxen Sodium [Aleve] 440 mg PO DAILY Cranberry Fruit Extract [Cranberry] 500 mg PO DAILY Cholecalciferol [Vitamin D3 (10 Mcg = 400 Iu)] 10 mcg PO DAILY Calcium Carbonate [Calcium] 1,200 mg PO DAILY Discharge Medication List Omeprazole 20 mg PO QAM 08/04/17 [History] Simvastatin [Zocor] 20 mg PO HS 08/04/17 [History] Ubidecarenone [Co Q-10] 100 mg PO QAM 08/04/17 [History] atenoloL 100 mg PO QAM 08/04/17 [History] hydroCHLOROthiazide [Hydrodiuril] 25 mg PO QAM 08/04/17 [History] lisinopriL 40 mg PO QAM 08/04/17 [History] Ponderosa-3 Fatty Acids [Ponderosa-3] 1,030 mg PO DAILY 10/26/17 [History] Tolterodine Tartrate [Detrol LA] 4 mg PO HS 10/26/17 [History] Celecoxib [CeleBREX] 200 mg PO DAILY 07/10/21 [History] Calcium Carbonate [Calcium] 1,200 mg PO DAILY 09/14/22 [History] Cholecalciferol [Vitamin D3 (10 Mcg = 400 Iu)] 10 mcg PO DAILY 09/14/22 [History] Cranberry Fruit Extract [Cranberry] 500 mg PO DAILY 09/14/22 [History] Naproxen Sodium [Aleve] 440 mg PO DAILY 09/14/22 [History] traMADol HCl [Ultram] 50 mg PO Q6HR PRN #28 tab 09/17/22 [Rx] Follow up Appointment(s)/Referral(s): Janet Rodriguez DO [Doctor of Osteopathic Medicine] - 2 Weeks Activity/Diet/Wound Care/Special Instructions: Keep site clean. May shower with waterproof Tegaderm intact. Do not soak in a tub. After 72 hours postoperatively, patient May remove dressing and then may shower with area uncovered. Leave glue intact and allow it to fray off on its own. May ambulate as tolerated. Avoid heavy or rigorous activity. No repetitive bending twisting or lifting. No overhead work. Discharge Disposition: HOME SELF-CARE
[2022-09-17] MEDS: LACTATED RINGERS 1,000 ML IV SCH (12:07)
== END 2022-09-17 13:23 | disposition home or self-care (01) | DRG 473 ==
LOC: 2ORMAIN 11:33 → EDSTATUS 13:30 → 4SSUR 16:34
PROVIDERS: ADMIT Orthopaedic Surgery Orthopaedic Surgery of the Spine; ATTEND Orthopaedic Surgery Orthopaedic Surgery of the Spine
PROC: 0RG20K0 Fusion of 2 or more Cervical Vertebral Joints with Nonautologous Tissue Substitute, Anterior Approach, Anterior Column, Open Approach (ICD-10-PCS; 2022-09-16)
PROC: 01N10ZZ Release Cervical Nerve, Open Approach (ICD-10-PCS; 2022-09-16)
PROC: 00NW0ZZ Release Cervical Spinal Cord, Open Approach (ICD-10-PCS; 2022-09-16)
PROC: 0RB30ZZ Excision of Cervical Vertebral Disc, Open Approach (ICD-10-PCS; 2022-09-16)
PROC: 0RG20A0 Fusion of 2 or more Cervical Vertebral Joints with Interbody Fusion Device, Anterior Approach, Anterior Column, Open Approach (ICD-10-PCS; principal; 2022-09-16 13:30)
DX: M50.01 Cervical disc disorder with myelopathy, high cervical region (principal); M25.78 Osteophyte, vertebrae; M50.11 Cervical disc disorder with radiculopathy, high cervical region; M48.02 Spinal stenosis, cervical region
CPT/HCPCS: 72020; 86850; 86900; 86901

== ENCOUNTER → 2023-04-05 | Outpatient (CLI) | payer MEDICARE, OTHER ==
[2023-04-05 16:33] LABS: ALT 18 U/L (8-44); AST 24 U/L (13-35); Albumin 4.1 d/dL (3.8-4.9); Albumin/Globulin Ratio 1.71 Ratio (1.60-3.17); Alkaline Phosphatase 66 U/L (41-126); BUN/Creat Ratio 28.43 Ratio (12.00-20.00); Blood Urea Nitrogen 19.9 mg/dL (9.0-27.0); Calcium 9.8 mg/dL (8.7-10.3); Carbon Dioxide 27.6 mmol/L (21.6-31.8); Chloride 101 mmol/L (96-109); Globulin 2.4 d/dL (1.6-3.3); Glucose 122 mg/dL (70-110); Potassium 3.5 mmol/L (3.5-5.5); Sodium 143 mmol/L (135-145); Total Bilirubin 0.7 mg/dL (0.3-1.2); Total Protein 6.5 d/dL (6.2-8.2)
[2023-04-05 17:33] LABS: Basophils # (A) 0.03 X 10*3/uL (0.00-0.10); Basophils % (A) 0.6 %; Eosinophils # (A) 0.29 X 10*3/uL (0.04-0.35); Eosinophils % (A) 5.5 %; HCT 42.9 % (37.2-46.3); HGB 14.1 d/dL (12.0-15.0); Lymphocytes # (A) 1.55 X 10*3/uL (0.90-5.00); Lymphocytes % (A) 29.1 %; MCH 29.4 pg (27.0-32.0); MCHC 32.9 d/dL (32.0-37.0); MCV 89.6 FL (80.0-97.0); Monocytes # (A) 0.45 X 10*3/uL (0.20-1.00); Monocytes % (A) 8.5 %; NRBC Per 100 WBC 0 X 10*3/uL (0.00-0.01); Neutrophils # (A) 2.98 X 10*3/uL (1.80-7.70); Neutrophils % (A) 55.9 %; Platelet Count 186 X 10*3/uL (140-440); RBC 4.79 X 10*6/uL (4.10-5.20); RBC Morphology Normal (Normal); RDW 13.3 % (11.5-14.5); WBC 5.32 X 10*3/uL (4.50-10.00)
== END | disposition home or self-care (01) ==
LOC: LABWHC1 09:14
PROVIDERS: ATTEND Internal Medicine Gastroenterology
DX: B18.1 Chronic viral hepatitis B without delta-agent (principal)
CPT/HCPCS: 36415; 80053; 85025

== ENCOUNTER → 2023-07-08 | Outpatient (CLI) | payer MEDICARE, OTHER ==
--- NOTE | 2023-07-08 20:29 | MM ---
Reason for Exam: Screening (asymptomatic). Last screening mammogram was performed 12 month(s) ago. Patient History: Menarche at age 17. First Full-Term at age 22. Left ovary removed at age 32. Right ovary removed at age 32. Hysterectomy at age 32. Postmenopausal. Patient has history of breast feeding. Estrogen for 5 years from age 32 until age 37. 2006, Benign Excisional Biopsy on the right side. 01/13/2019, Benign Core Biopsy on the right side. Paternal aunt had breast cancer, age 60. Maternal aunt had breast cancer, age 60. Risk Values: Kamini 5 year model risk: 2.2%. NCI Lifetime model risk: 4.4%. Prior Study Comparison: 07/01/2020 Bilateral Screening Mammogram, [facility]. 07/03/2021 Bilateral Screening Mammogram, [facility]. 07/06/2022 Bilateral MG 3D screening mammo w/cad, [facility]. Tissue Density: There are scattered fibroglandular densities. Findings: Analyzed By CAD. Chronic bilateral nodularity. Microclip right breast from prior biopsy. Unchanged bilateral scattered calcifications. There is no suspicious group of microcalcifications or new suspicious mass in either breast. Overall Assessment: Benign, BI-RAD 2 Management: Screening Mammogram of both breasts in 1 year. . Patient should continue monthly self-breast exams. A clinical breast exam by your physician is recommended on an annual basis. This exam should not preclude additional follow-up of suspicious palpable abnormalities. Note on Kamini scores and lifetime risk: 1. A Kamini score greater than 3% is considered moderate risk. If this is the case, consider specialist referral to assess eligibility for a risk reducing agent. 2. If overall lifetime risk for the development of breast cancer is 20% or higher, the patient may qualify for future screening with alternating mammogram and breast MRI. Electronically signed and approved by: Osman Akins M.D. Radiologist
== END | disposition home or self-care (01) ==
LOC: RADMAMWWP 09:08
PROVIDERS: ATTEND Surgery
DX: Z12.31 Encounter for screening mammogram for malignant neoplasm of breast (principal); Z80.3 Family history of malignant neoplasm of breast; Z78.0 Asymptomatic menopausal state
CPT/HCPCS: 77063; 77067

== ENCOUNTER → 2023-07-15 | Outpatient (CLI) | payer MEDICARE, OTHER ==
--- NOTE | 2023-07-15 10:46 | P.PN ---
Subjective Progress Note Date: 07/15/23 Principal diagnosis: fibrocystic breast disease fibrocystic breast changes Fibroadenoma/fibroadenomatoid hyperplasia Georgina is a 78-year-old white female who underwent routine screening mammogram was noted to have an area of concern in the right breast in the upper outer quadrant. This was performed and 7519. No lesions of concern were identified in the left breast. [place] [address]. This revealed coarse heterogeneous grouped calcifications in the 11:00 upper outer quadrant of the right breast. Stereotactic core biopsy was recommended. The patient did not feel anything of concern in her breast. She had no history of any trauma or infection in the breast. Stereotactic core biopsy of the right breast was performed on 8219. This revealed fibroadenoma/fibroadenomatoid hyperplasia with calcifications and filipe kground fibrocystic changes. The patient was not complaining of any nipple discharge or skin changes. She is not complaining of any masses lumps or nodules in her breasts. She has not had any recent infection or trauma to her breast. No complaints of any pain in her breast. She had a bilateral mammogram performed on 06/27/2019, this was BIRADS 2 with no lesions of concern noted in either breast. The patient most recently had a bilateral mammogram on 07-08-23 which was benign BIRAD 2. She had not noted any lumps, masses, or nodules of concern in either breast. Mammogram personally reviewed Kamini risk: 2.2 % 5 year; we have discussed chemoprphylaxis and she has declined Family History: 1. 2 maternal aunts: Breast cancer 2. mother: lung cancer Hormonal history: Menarche:17 breast fed: yes, first born at 22 Menopause: hysterectomy early 30's done for infection related to an IUD, left 1 ovary BCP: 5 years hormones: 10 years, typically right after her hysterectomy and stopped in her early to mid 40s At past surgical history: 1. Hysterectomy and one posteriorly 2. TB into bone and rib removed 3. back fused 4. two total hip replacements 5. right thumb 6. right breast biopsy many years ago Medical history: HTN hepatitis B arthritis Social history: Smoke: Negative Alcohol: Wine every evening Drugs: Negative - Constitutional Constitutional: Denies chills, Denies fever - EENT Eyes: denies blurred vision, denies pain Ears: deny: decreased hearing, tinnitus Ears, nose, mouth and throat: Denies headache, Denies sore throat - Breasts Breasts: bilateral: as per HPI - Cardiovascular Cardiovascular: Reports high blood pressure - Respiratory Respiratory: Denies cough - Gastrointestinal Comment: hepatitis B Gastrointestinal: Denies abdominal pain, Denies diarrhea, Denies nausea, Denies vomiting - Genitourinary (Female) Genitourinary: Reports kidney stones, Denies dysuria, Denies hematuria - Menstruation Menstruation: Reports post hysterectomy - Musculoskeletal Comment: ARTHritis, uses a cane - Integumentary Integumentary: Denies pruritus, Denies rash - Neurological Neurological: Denies numbness, Denies weakness - Psychiatric Psychiatric: Denies anxiety, Denies depression - Endocrine Endocrine: Denies fatigue, Denies weight change - Hematologic/Lymphatic Comment: none - Allergic/Immunologic Allergic/Immunologic: Reports as per HPI Objective - Constitutional General appearance: Present: cooperative - EENT Eyes: Present: EOMI ENT: Present: hearing grossly normal - Neck Neck: Present: normal ROM - Respiratory Respiratory: bilateral: CTA - Cardiovascular Rhythm: regular Heart sounds: normal: S1, S2 - Integumentary Integumentary: Present: normal turgor - Musculoskeletal Musculoskeletal: Present: gait normal - Psychiatric Psychiatric: Present: A&O x's 3, appropriate affect, intact judgment & insight - Additional findings Additional findings: Breast Exam: BRA: 40DD inspection: bilateral grade 3 ptosis palpation: right breast: Multi-positional exam fibrocystic changes, no dominant masses or nodules of concern Right axilla: No adenopathy of concern Left breast: Multiple positional exam fibrocystic changes no dominant masses or nodules of concern Left axilla: No adenopathy of concern Assessment and Plan Assessment: Impression: HTN hepatitis B arthritis fibrocystic changes bilateral Plan: 1. bilateral mammogram in one year with examination at that time 2. follow up in on year sooner if any concerns CC; Dr. Luciano
[2023-07-15 11:17] VITALS: BP 151/85; PULSE 75; RESP 18; TEMP 97.6
== END ==
LOC: WWCWWP 10:32
PROVIDERS: ATTEND Surgery
DX: N60.11 Diffuse cystic mastopathy of right breast (principal); N60.12 Diffuse cystic mastopathy of left breast; D24.1 Benign neoplasm of right breast; I10 Essential (primary) hypertension; M19.90 Unspecified osteoarthritis, unspecified site; B19.10 Unspecified viral hepatitis B without hepatic coma; Z80.3 Family history of malignant neoplasm of breast; Z79.899 Other long term (current) drug therapy; Z87.891 Personal history of nicotine dependence

== ENCOUNTER → 2023-09-20 | Outpatient (CLI) | payer MEDICARE, OTHER ==
[2023-09-20 10:59] LABS: Basophils # (A) 0.04 X 10*3/uL (0.00-0.10); Basophils % (A) 0.7 %; Eosinophils # (A) 0.19 X 10*3/uL (0.04-0.35); Eosinophils % (A) 3.1 %; HCT 45.7 % (37.2-46.3); HGB 15.2 g/dL (12.0-15.0); Lymphocytes % (A) 27.9 %; MCH 29.8 pg (27.0-32.0); MCHC 33.3 g/dL (32.0-37.0); MCV 89.6 FL (80.0-97.0); Mean Platelet Volume 9.8 FL (9.5-12.2); Monocytes # (A) 0.52 X 10*3/uL (0.20-1.00); Monocytes % (A) 8.5 %; NRBC Per 100 WBC 0 X 10*3/uL (0.00-0.01); Neutrophils # (A) 3.62 X 10*3/uL (1.80-7.70); Neutrophils % (A) 59.3 %; Platelet Count 197 X 10*3/uL (140-440); RDW 13.5 % (11.5-14.5)
[2023-09-20 11:19] LABS: ALT 25 U/L (8-44); AST 33 U/L (13-35); Albumin 4.4 g/dL (3.8-4.9); Albumin/Globulin Ratio 1.76 Ratio (1.60-3.17); Alkaline Phosphatase 70 U/L (41-126); Calcium 9.8 mg/dL (8.7-10.3); Carbon Dioxide 27.7 mmol/L (21.6-31.8); Chloride 97 mmol/L (96-109); Globulin 2.5 g/dL (1.6-3.3); Glucose 126 mg/dL (70-110); Potassium 3.8 mmol/L (3.5-5.5); Sodium 138 mmol/L (135-145); Total Bilirubin 0.6 mg/dL (0.3-1.2); Total Protein 6.9 g/dL (6.2-8.2)
== END | disposition home or self-care (01) ==
LOC: LABWHC1 07:06
PROVIDERS: ATTEND Internal Medicine Gastroenterology
DX: B18.1 Chronic viral hepatitis B without delta-agent (principal)
CPT/HCPCS: 36415; 80053; 82105; 85025

== ENCOUNTER → 2023-09-27 | Outpatient (CLI) | payer MEDICARE, OTHER ==
--- NOTE | 2023-09-27 09:09 | US ---
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 FINDINGS: EXAM MEASUREMENTS: Liver Length: 12.8 cm Gallbladder Wall: 0.1 cm CBD: 0.5 cm Right Kidney: 8.9x4.1x3.8 cm STAFFING CLERK NOTES: Pancreas: Tail obscured by overlying bowel gas Liver:, No suspicious observations, dilated ducts or cystic structures. Gallbladder: wnl Evidence for sonographic Hernandez's sign: No CBD: wnl Right Kidney: renal stone again seen, measures 1.2cm exam slightly limited by bowel gas IMPRESSION: Rather homogenous echotexture to the liver. No suspicious observations.
== END | disposition home or self-care (01) ==
LOC: RADUSWWP 06:54
PROVIDERS: ATTEND Internal Medicine Gastroenterology
DX: B18.1 Chronic viral hepatitis B without delta-agent (principal)
CPT/HCPCS: 76705

== ENCOUNTER → 2024-04-18 | Outpatient (CLI) | payer MEDICARE, OTHER ==
[2024-04-18 15:02] LABS: Basophils # (A) 0.03 X 10*3/uL (0.00-0.10); Basophils % (A) 0.6 %; Eosinophils # (A) 0.27 X 10*3/uL (0.04-0.35); Eosinophils % (A) 5.1 %; HCT 41.5 % (37.2-46.3); Lymphocytes # (A) 1.49 X 10*3/uL (0.90-5.00); Lymphocytes % (A) 28.2 %; MCHC 33.7 g/dL (32.0-37.0); MCV 91.8 FL (80.0-97.0); Mean Platelet Volume 10.7 FL (9.5-12.2); Monocytes # (A) 0.57 X 10*3/uL (0.20-1.00); Monocytes % (A) 10.8 %; NRBC Per 100 WBC 0 X 10*3/uL (0.00-0.01); Neutrophils # (A) 2.89 X 10*3/uL (1.80-7.70); Neutrophils % (A) 54.7 %; Platelet Count 167 X 10*3/uL (140-440); RBC 4.52 X 10*6/uL (4.10-5.20); RDW 14.1 % (11.5-14.5); WBC 5.28 X 10*3/uL (4.50-10.00)
[2024-04-18 15:15] LABS: ALT 17 U/L (8-44); AST 23 U/L (13-35); Albumin 4.2 g/dL (3.8-4.9); Albumin/Globulin Ratio 1.91 Ratio (1.60-3.17); Alkaline Phosphatase 53 U/L (41-126); Blood Urea Nitrogen 22.8 mg/dL (9.0-27.0); Calcium 9.9 mg/dL (8.7-10.3); Carbon Dioxide 29.1 mmol/L (21.6-31.8); Chloride 101 mmol/L (96-109); Globulin 2.2 g/dL (1.6-3.3); Glucose 124 mg/dL (70-110); Potassium 3.5 mmol/L (3.5-5.5); Sodium 142 mmol/L (135-145); Total Bilirubin 0.7 mg/dL (0.3-1.2); Total Protein 6.4 g/dL (6.2-8.2)
== END | disposition home or self-care (01) ==
LOC: LABWHC1 09:49
PROVIDERS: ATTEND Internal Medicine Gastroenterology
DX: B18.1 Chronic viral hepatitis B without delta-agent (principal)
CPT/HCPCS: 36415; 80053; 82105; 85025

== ENCOUNTER → 2024-07-10 | Outpatient (CLI) | payer MEDICARE, OTHER ==
--- NOTE | 2024-07-10 10:11 | MM ---
Reason for Exam: Screening (asymptomatic). Last screening mammogram was performed 12 month(s) ago. Patient History: Menarche at age 17. First Full-Term at age 22. Left ovary removed at age 32. Right ovary removed at age 32. Hysterectomy at age 32. Postmenopausal. Patient has history of breast feeding. Estrogen for 5 years from age 32 until age 37. 2006, Benign Excisional Biopsy on the right side. 01/13/2019, Benign Core Biopsy on the right side. Paternal aunt had breast cancer, age 60. Maternal aunt had breast cancer, age 60. Risk Values: Kamini 5 year model risk: 2.1%. NCI Lifetime model risk: 4.1%. Prior Study Comparison: 07/03/2021 Bilateral Screening Mammogram, [facility]. 07/06/2022 Bilateral MG 3D screening mammo w/cad, [facility]. 07/08/2023 Bilateral MG 3D screening mammo w/cad, [facility]. Tissue Density: There are scattered areas of fibroglandular density. Findings: Analyzed By CAD. Right breast biopsy clip. Right breast: There is no suspicious group of microcalcifications or new suspicious mass. Benign-appearing calcifications right breast. Left breast: There is no suspicious group of microcalcifications or new suspicious mass. Benign-appearing calcifications left breast. Overall Assessment: Benign, BI-RAD 2 Management: Screening Mammogram of both breasts in [address] [facility] will attempt to contact patient to return for supplemental views and ultrasound if indicated. Patient should continue monthly self-breast exams. A clinical breast exam by your physician is recommended on an annual basis. This exam should not preclude additional follow-up of suspicious palpable abnormalities. Note on Kamini scores and lifetime risk: 1. A Kamini score greater than 3% is considered moderate risk. If this is the case, consider specialist referral to assess eligibility for a risk reducing agent. 2. If overall lifetime risk for the development of breast cancer is 20% or higher, the patient may qualify for future screening with alternating mammogram and breast MRI. [facility], , 07/10/2024 10:08 AM. Electronically signed and approved by: Michael Orozco DO
== END | disposition home or self-care (01) ==
LOC: RADMAMWWP 09:15
PROVIDERS: ATTEND Surgery
DX: Z12.31 Encounter for screening mammogram for malignant neoplasm of breast (principal); Z90.722 Acquired absence of ovaries, bilateral; Z78.0 Asymptomatic menopausal state; Z80.3 Family history of malignant neoplasm of breast; R92.323 Mammographic fibroglandular density, bilateral breasts; Z98.82 Breast implant status
CPT/HCPCS: 77063; 77067

== ENCOUNTER → 2024-07-14 | Outpatient (CLI) | payer MEDICARE, OTHER ==
[2024-07-14 09:49] VITALS: BP 156/81; PULSE 70; RESP 17; TEMP 97.6
--- NOTE | 2024-07-14 09:58 | P.PN ---
Subjective Progress Note Date: 07/14/24 Principal diagnosis: fibrocystic breast disease 07-14-24 Principal diagnosis: fibrocystic breast disease Fibroadenoma/fibroadenomatoid hyperplasia Georgina is a 79-year-old white female who underwent routine screening mammogram was noted to have an area of concern in the right breast in the upper outer quadrant. This was performed and 7519. No lesions of concern were identified in the left breast. [place] [address]. This revealed coarse heterogeneous grouped calcifications in the 11:00 upper outer quadrant of the right breast. Stereotactic core biopsy was recommended. The patient did not feel anything of concern in her breast. She had no history of any trauma or infection in the breast. Stereotactic core biopsy of the right breast was performed on 82. This revealed fibroadenoma/fibroadenomatoid hyperplasia with calcifications and background fibrocystic changes. The patient was not complaining of any nipple discharge or skin changes. She is not complaining of any masses lumps or nodules in her breasts. She has not had any recent infection or trauma to her breast. No complaints of any pain in her breast. She had a bilateral mammogram performed on 06/27/2019, this was BIRADS 2 with no lesions of concern noted in either breast. The patient most recently had a bilateral mammogram on 07-10-24 which was benign BIRAD 2. She had not noted any lumps, masses, or nodules of concern in either breast. Mammogram personally reviewed and interpreted. Kamini risk: 2.1 % 5 year; we have discussed chemoprphylaxis and she has declined Family History: 1. 2 maternal aunts: Breast cancer 2. mother: lung cancer Hormonal history: Menarche:17 breast fed: yes, first born at 22 Menopause: hysterectomy early 30's done for infection related to an IUD, left 1 ovary BCP: 5 years hormones: 10 years, typically right after her hysterectomy and stopped in her early to mid 40s Surgical history: 1. Hysterectomy and one posteriorly 2. TB into bone and rib removed 3. back fused 4. two total hip replacements 5. right thumb 6. right breast biopsy many years ago Medical history: HTN hepatitis B arthritis Social history: Smoke: Negative Alcohol: Wine every evening Drugs: Negative - Constitutional Constitutional: Denies chills, Denies fever - EENT Eyes: denies blurred vision, denies pain Ears: deny: decreased hearing, tinnitus Ears, nose, mouth and throat: Denies headache, Denies sore throat - Breasts Breasts: bilateral: as per HPI - Cardiovascular Cardiovascular: Reports high blood pressure - Respiratory Respiratory: Denies cough - Gastrointestinal Comment: hepatitis B Gastrointestinal: Denies abdominal pain, Denies diarrhea, Denies nausea, Denies vomiting - Genitourinary (Female) Genitourinary: Reports kidney stones, Denies dysuria, Denies hematuria - Menstruation Menstruation: Reports post hysterectomy - Musculoskeletal Comment: ARTHritis, uses a cane - Integumentary Integumentary: Denies pruritus, Denies rash - Neurological Neurological: Denies numbness, Denies weakness - Psychiatric Psychiatric: Denies anxiety, Denies depression - Endocrine Endocrine: Denies fatigue, Denies weight change - Hematologic/Lymphatic Comment: none - Allergic/Immunologic Allergic/Immunologic: Reports as per HPI Objective - Vital Signs Vital signs: Vital Signs Temp 97.6 F 07/14/24 09:47 Pulse 70 07/14/24 09:47 Resp 17 07/14/24 09:47 BP 156/81 07/14/24 09:47 Pulse Ox 95 07/14/24 09:47 FiO2 Intake & Output 07/13/24 07/14/24 07/14/24 18:59 06:59 18:59 Weight 65.771 kg - Constitutional General appearance: Present: cooperative - EENT Eyes: Present: EOMI ENT: Present: hearing grossly normal - Neck Neck: Present: normal ROM - Respiratory Respiratory: bilateral: CTA - Cardiovascular Rhythm: regular Heart sounds: normal: S1, S2 - Integumentary Integumentary: Present: normal turgor - Musculoskeletal Musculoskeletal: Present: gait normal - Psychiatric Psychiatric: Present: A&O x's 3, appropriate affect, intact judgment & insight - Additional findings Additional findings: Breast Exam: BRA: 40DD inspection: bilateral grade 3 ptosis palpation: right breast: Multi-positional exam fibrocystic changes, no dominant masses or nodules of concern Right axilla: No adenopathy of concern Left breast: Multiple positional exam fibrocystic changes no dominant masses or nodules of concern Left axilla: No adenopathy of concern Assessment and Plan Assessment: Impression: HTN hepatitis B arthritis fibrocystic changes bilateral Plan: 1. bilateral mammogram in one year, Jun 2025 with examination at that time 2. follow up in on year sooner if any concerns CC; Dr. Luciano
== END ==
LOC: WWCWWP 09:23
PROVIDERS: ATTEND Surgery
DX: I10 Essential (primary) hypertension (principal); B19.10 Unspecified viral hepatitis B without hepatic coma; M19.90 Unspecified osteoarthritis, unspecified site; N60.12 Diffuse cystic mastopathy of left breast; N60.11 Diffuse cystic mastopathy of right breast; Z12.31 Encounter for screening mammogram for malignant neoplasm of breast; Z80.3 Family history of malignant neoplasm of breast; Z87.891 Personal history of nicotine dependence

== ENCOUNTER → 2024-10-16 | Outpatient (CLI) | payer MEDICARE, OTHER ==
--- NOTE | 2024-10-16 12:43 | US ---
EXAMINATION TYPE: US liver DATE OF EXAM: 10/16/2024 COMPARISON: 09/27/2023 CLINICAL INDICATION: Female, 79 years old with history of B18.1 CHRONIC HEP B; Hep B. Routine liver US per patient. Hx renal stone. TECHNIQUE: Grayscale and color Doppler imaging of the right upper quadrant was performed. FINDINGS: EXAM MEASUREMENTS: Liver Length: 12.7 cm Gallbladder Wall: 0.1 cm CBD: 0.5 cm Right Kidney: 9.8 x 4.0 x 4.7 cm Pancreas: Tail obscured by overlying bowel gas Liver: Slightly hypoechoic appearance to the liver. No focal lesion seen. Gallbladder: wnl Evidence for sonographic Hernandez's sign: neg CBD: wnl Right Kidney: Multiple echogenic foci seen, largest upper pole measuring 1 cm. No hydronephrosis. IMPRESSION: 1. Slightly hypoechoic appearance to the liver could be on a technical basis but can also be seen wit h hepatitis. No focal lesion. 2. No gallstones or biliary ductal dilatation. 3. Underlying right nephrolithiasis measuring up to 1 cm. [facility], , 10/16/2024 12:41 PM
[2024-10-16 15:00] LABS: Basophils # (A) 0.04 X 10*3/uL (0.00-0.10); Basophils % (A) 0.9 %; Eosinophils # (A) 0.11 X 10*3/uL (0.04-0.35); Eosinophils % (A) 2.4 %; HCT 41.6 % (37.2-46.3); HGB 13.6 g/dL (12.0-15.0); Lymphocytes # (A) 1.33 X 10*3/uL (0.90-5.00); Lymphocytes % (A) 29.6 %; MCH 30.7 pg (27.0-32.0); MCHC 32.7 g/dL (32.0-37.0); MCV 93.9 FL (80.0-97.0); Mean Platelet Volume 10.4 FL (9.5-12.2); Monocytes # (A) 0.47 X 10*3/uL (0.20-1.00); Monocytes % (A) 10.4 %; NRBC Per 100 WBC 0 X 10*3/uL (0.00-0.01); Neutrophils # (A) 2.54 X 10*3/uL (1.80-7.70); Neutrophils % (A) 56.5 %; Platelet Count 182 X 10*3/uL (140-440); RBC 4.43 X 10*6/uL (4.10-5.20); RDW 14.2 % (11.5-14.5)
[2024-10-16 15:18] LABS: ALT 21 U/L (8-44); AST 25 U/L (13-35); Albumin 4.2 g/dL (3.8-4.9); Albumin/Globulin Ratio 1.83 Ratio (1.60-3.17); Alkaline Phosphatase 42 U/L (41-126); BUN/Creat Ratio 26.33 Ratio (12.00-20.00); Blood Urea Nitrogen 23.7 mg/dL (9.0-27.0); Calcium 10.1 mg/dL (8.7-10.3); Carbon Dioxide 28.5 mmol/L (21.6-31.8); Chloride 102 mmol/L (96-109); Globulin 2.3 g/dL (1.6-3.3); Glucose 122 mg/dL (70-110); Potassium 3.5 mmol/L (3.5-5.5); Sodium 140 mmol/L (135-145); Total Bilirubin 0.6 mg/dL (0.3-1.2); Total Protein 6.5 g/dL (6.2-8.2)
== END | disposition home or self-care (01) ==
LOC: RADUSWWP 08:50
PROVIDERS: ATTEND Internal Medicine Gastroenterology
DX: N20.0 Calculus of kidney (principal); B18.1 Chronic viral hepatitis B without delta-agent
CPT/HCPCS: 76705; 80053; 85025

== ENCOUNTER 2024-12-20 08:51 | Day surgery (SDC) | payer MEDICARE, OTHER ==
[2024-12-20] MEDS: IV FLUID CONTINUATION 1,000 ML IV ONE ×2 (09:55→10:54)
[2024-12-20] MEDS: LACTATED RINGERS 1,000 ML IV SCH (10:00)
[2024-12-20 10:02] VITALS: RESP 16; TEMP 97
[2024-12-20] MEDS ORDERED: PROPOFOL 10 MG/ML 20 ML VIAL IV ONE (11:00)
--- NOTE | 2024-12-20 11:18 | P.PCN ---
Date of Procedure: 12/20/24 Procedure(s) Performed: BRIEF HISTORY: Patient is a 79-year-old pleasant white female scheduled for an elective colonoscopy as a part of patient chronic diarrhea for the last several months duration PROCEDURE PERFORMED: Colonoscopy up to the transverse colon with multiple biopsies. PREOPERATIVE DIAGNOSIS: Chronic diarrhea. IV sedation per Anesthesia. PROCEDURE: After informed consent was obtained, the patient, was brought into the endoscopy unit. IV sedation was administered by Anesthesia under continuous monitoring. Digital rectal examination was normal. Initially the Olympus CF-160 flexible video pediatric colonoscope was then inserted in the rectum, gradually advanced into the sigmoid colon and further advancement was not possible. The scope was removed and upper endoscopy was inserted to the rectum and gradually advanced into the transverse colon closer to the hepatic flexure but despite multiple attempts I was not able to advance into the cecum as the scope was not long enough.. Careful examination was performed as the scope was gradually being withdrawn. Mucosa of the, transverse colon, descending colon, sigmoid colon, and rectum appeared normal. Random biopsies were done from the transverse colon and descending colon to rule out microscopic/collagenous colitis. Retroflexion was performed in the rectum and no lesions were seen. The patient tolerated the procedure well. IMPRESSION: Normal-appearing colon from rectum to mid transverse colon status post multiple biopsies to rule out microscopic/collagenous colitis. RECOMMENDATIONS: Findings of this examination were discussed with the patient as well as her family. She was advised to follow-up with the biopsy results. In the office in 2 weeks..
[2024-12-20 11:41] VITALS: BP 117/64; PULSE 65
== END 2024-12-20 12:22 | disposition home or self-care (01) ==
LOC: ORWHC2ENDO 08:51
PROVIDERS: ATTEND Internal Medicine Gastroenterology
DX: K52.9 Noninfective gastroenteritis and colitis, unspecified (principal); I10 Essential (primary) hypertension; E78.5 Hyperlipidemia, unspecified; K21.9 Gastro-esophageal reflux disease without esophagitis; M19.90 Unspecified osteoarthritis, unspecified site; M21.379 Foot drop, unspecified foot; Z87.891 Personal history of nicotine dependence; Z79.899 Other long term (current) drug therapy
CPT/HCPCS: 45380; J2704; 88305